=== PATIENT | female | born 1985 | race Caucasian/White ===

== ENCOUNTER 2018-12-20 18:09 | Emergency (ER) | payer MEDICAID ==
[~2018-12-20] VITALS: Ht 165.1 cm; Wt 134.7 kg
--- NOTE | 2018-12-20 18:19 | NUR ---
Patient to ER bed 05 to gown for evaluation. Side rails up.
[2018-12-20 18:20] VITALS: BP_SYST 143
--- NOTE | 2018-12-20 18:30 | NUR ---
Dianne Perkins at bedside examining patient.
--- NOTE | 2018-12-20 18:31 | NUR ---
Pt ambulated with non slip socks and steady gait to bathroom to provide urine sample
--- NOTE | 2018-12-20 18:35 | NUR ---
report given, patient AOx4 arriving via bls from [facility]. patient stated I swallowed a AAA battery on monday and they took me to [facility]. patient was medically cleared monday after swallowing the battery. patient states "I've done this a lot." patient stated she was trying to kill herself because she was angery at her [facility]. patient denies pain/n/v/d or any complaint outside of being angery with her [facility]. no other complaint or injury at this time.
--- NOTE | 2018-12-20 18:45 | NUR ---
cancelled all labs and orders.
--- NOTE | 2018-12-20 18:45 | NUR ---
Rita with posion control stated: Batteries will pass within 5-7 days but it varies depending on the bowl pattern of the person. Sometimes you can add miralax to help the process along. if the patient develops symptoms of obstruction, aloc, sever abd pain, fever. patient should be seen by medical staff. no other recommendation at this time.
--- NOTE | 2018-12-20 18:50 | NUR ---
requested straight cath for test.
[2018-12-20] MEDS ORDERED: POLYETHYLENE GLYCOL 3350, 17 GM/ POWD.PACK PO ONE (19:00)
--- NOTE | 2018-12-20 19:11 | NUR ---
patient is to be transfered back to [facility].
--- NOTE | 2018-12-20 19:18 | NUR ---
Patient to be transferred to [place]. Is being transferred due to higher level of care. Receiving facility has accepting physician and available space. ER physician has signed transfer form. Patient or responsible constitution party has agreed to transfer and signed form. Patient belongings inventoried and will be sent with patient. Copy of nursing notes, lab reports, EKG, Physicians Orders and X-rays to be sent with patient. Report called to Khai Coto at receiving facility. Receiving physician is following patient at this time. patient was transfered to [facility] from [facility]. [facility] ambulance service has been called for transfer. ETA is 1930.
--- NOTE | 2018-12-20 19:23 | NUR ---
Patient transported to radiology, accompanied by rad staff.
--- NOTE | 2018-12-20 19:30 | NUR ---
Pt returned from radiology in stable condition
--- NOTE | 2018-12-20 19:35 | NUR ---
[facility] arrived for patient transportation.
--- NOTE | 2018-12-20 19:40 | NUR ---
Patient given written and verbal discharge instructions and verbalizes understanding. ER MD discussed with patient the results and treatment provided. Patient in stable condition. ID arm band removed. Rx of Miralax given. Patient educated on pain management and to follow up with PMD. Pain Scale 0/10. Opportunity for questions provided and answered. Medication side effect fact sheet provided.
[2018-12-20 19:46] VITALS: BP_SYST 133
== END 2018-12-20 19:40 | disposition home or self-care (01) ==
LOC: SED 18:09
DX: T18.8XXA Foreign body in other parts of alimentary tract, initial encounter (principal); K59.00 Constipation, unspecified; E78.00 Pure hypercholesterolemia, unspecified; F31.9 Bipolar disorder, unspecified; F20.9 Schizophrenia, unspecified; I10 Essential (primary) hypertension; Z88.0 Allergy status to penicillin; Z88.1 Allergy status to other antibiotic agents; Z88.2 Allergy status to sulfonamides; X58.XXXA Exposure to other specified factors, initial encounter; Y93.89 Activity, other specified; Y92.89 Other specified places as the place of occurrence of the external cause; Y99.8 Other external cause status
CPT/HCPCS: 71045; 74018; 99283

== ENCOUNTER 2021-03-25 20:19 | Emergency (ER) | payer MEDICAID ==
[~2021-03-25] VITALS: Ht 170.2 cm; Wt 149.7 kg
[2021-03-25 20:19] VITALS: BP_SYST 132
[2021-03-25 21:07] LABS: BASOPHILS # (AUTO) 0.1 K/uL (0.0-0.2); BASOPHILS % (AUTO) 0.9 % (0.0-2.0); EOSINOPHILS # (AUTO) 0.1 K/uL (0.0-0.4); HEMATOCRIT 39.3 % (36-48); HEMOGLOBIN 13.2 g/dL (12.0-16.0); LYMPHOCYTES # (AUTO) 2.4 K/uL (1.0-5.5); MEAN CORPUSCULAR HEMOGLOBIN 30 pg (27-31); MEAN CORPUSCULAR HGB CONC 34 % (32-36); MEAN CORPUSCULAR VOLUME 90 fL (79.0-98.0); MONOCYTES # (AUTO) 0.6 K/uL (0.0-1.0); MONOCYTES % (AUTO) 7.5 % (1.7-9.3); NEUTROPHILS # (AUTO) 4.3 K/uL (1.8-7.7); NEUTROPHILS % (AUTO) 57.6 % (40.0-70.0); PLATELET COUNT (AUTO) 262 K/uL (130-430); RED BLOOD CELL COUNT(AUTO) 4.35 MIL/uL (4.2-6.2); RED CELL DISTRIBUTION WIDTH 13.8 % (9.0-15.0); WHITE BLOOD COUNT (AUTO) 7.4 K/uL (4.8-10.8)
[2021-03-25 21:17] LABS: BILIRUBIN,URINE NEGATIVE (NEGATIVE); BLOOD, URINE NEGATIVE (NEGATIVE); CLARITY/URINE OTHER (CLEAR); COLOR,URINE YELLOW (YELLOW); GLUCOSE,URINE NEGATIVE (NEGATIVE); KETONES,URINE NEGATIVE (NEGATIVE); LEUKOCYTE ESTERASE ,URINE 1+ (NEGATIVE); NITRITE, URINE NEGATIVE (NEGATIVE); PH,URINE 7.5 (5.0-8.0); PROTEIN URINE NEGATIVE (NEGATIVE); UROBILINOGEN,URINE 0.2 (0.2-1.0)
[2021-03-25 21:31] LABS: ANION GAP 6 (5-15); CALCIUM 8.6 mg/dL (8.4-11.0); CHLORIDE 105 mmol/L (98-107); CREATININE 0.55 mg/dL (0.55-1.30); GLUCOSE 101 mg/dL (70-99); POTASSIUM 3.7 mmol/L (3.5-5.1); SODIUM SERUM 140 mmol/L (136-145); UREA NITROGEN, BLOOD 11 mg/dL (8-21)
[2021-03-25 21:32] LABS: GFR AFRICAN AMERICAN 161 mL/min (>90)
[2021-03-25 21:36] LABS: ALANINE AMINOTRANSFERASE 23 U/L (12-78); ALBUMIN 3.1 g/dL (3.4-4.8); ASPARTATE AMINOTRANSFERASE 11 U/L (10-37); TOTAL BILIRUBIN 0.3 mg/dL (0.0-1.0)
[2021-03-25 21:37] LABS: BARBITURATE, URINE NEGATIVE (NEG <=200); BENZODIAZEPINE, URINE POSITIVE (NEG <=150); CANNABINOID, URINE NEGATIVE (NEG <=50); COCAINE, URINE NEGATIVE (NEG <=150); METHAMPHETAMINES SCREEN,URINE NEGATIVE (NEG <=500); OPIATE, URINE NEGATIVE (NEG <=100); PHENCYCLIDINE SCREEN,URINE NEGATIVE (NEG <=25); UR TRICYCLIC ANTIDEPRESSANTS NEGATIVE (NEG <=300); URINE AMPHETAMINE NEGATIVE (NEG <=500); URINE METHADONE NEGATIVE (NEG <=200); URINE OXYCODONE SCREEN NEGATIVE (NEG <=100); URINE PROPOXYPHENE SCREEN NEGATIVE (NEG <=300)
[2021-03-25 21:40] LABS: ACETAMINOPHEN < 1 ug/mL (1-30); ALCOHOL, BLOOD < 3 mg/dL (<10)
[2021-03-25 21:41] LABS: CHOLESTEROL 185 mg/dL (<200); HDL CHOLESTEROL 43 mg/dL (>55); TRIGLYCERIDES 203 mg/dL (30-150)
[2021-03-25 21:42] LABS: LDL CHOLESTEROL 121 mg/dL (<100)
[2021-03-25 21:44] LABS: BACTERIA,URINE None Seen /HPF (None Seen); RBC,URINE NONE SEEN /HPF (0-3)
[2021-03-25 21:45] LABS: TRICHOMONAS,URINE None Seen /HPF (None Seen); YEAST,URINE None Seen /HPF (None Seen)
[2021-03-25] MEDS ORDERED: PROCHLORPERAZINE EDISYLATE 10 MG/2 ML VIAL IVP ONE (23:00)
[2021-03-26 08:37] VITALS: BP_SYST 126
[2021-03-27] MEDS ORDERED: maalox PO (21:28)
[2021-03-27] MEDS ORDERED: ACET-2634 PO (21:28)
[2021-03-27] MEDS ORDERED: MV-M1TAB2 PO (21:28)
[2021-03-27] MEDS ORDERED: MOM PO (21:28)
[2021-03-27] MEDS ORDERED: IBUP-1968 PO (21:28)
[2021-03-27] MEDS ORDERED: LORA-258 PO (21:28)
[2021-03-27] MEDS ORDERED: ZOLP5TAB2 PO (21:28)
== END 2021-03-26 09:49 ==
LOC: SED 20:19
DX: F29 Unspecified psychosis not due to a substance or known physiological condition (principal); F43.20 Adjustment disorder, unspecified; I10 Essential (primary) hypertension; F20.9 Schizophrenia, unspecified; E78.00 Pure hypercholesterolemia, unspecified; Z88.0 Allergy status to penicillin; Z88.1 Allergy status to other antibiotic agents; Z88.2 Allergy status to sulfonamides; Z20.822 Contact with and (suspected) exposure to COVID-19
CPT/HCPCS: 36415; 74018; 80053; 80061; 80307; 81000; 83036; 85025; 87081; 87426; 96374; 99285; G0480; G0481; G0482; J0780

== ENCOUNTER 2021-03-27 20:37 | Inpatient (IN) | payer MEDICAID, SELFPAY ==
[~2021-03-27] VITALS: Ht 170.2 cm; Wt 133.4 kg
[~2021-03-27 20:37] MED LIST: LR 1,000 ML IV.SOLN IV ONE; MIDAZOLAM HCL 5 MG/5 ML VIAL IVP ONE; NS 1000 ML IV.SOLN IV ONE; PROPOFOL 200MG/ 20ML VIAL (DIPRIVAN) IV ONE
--- NOTE | 2021-03-27 20:37 | NUR ---
Patient to ER bed 4 to gown for evaluation. Side rails up. Report given to self.
[2021-03-27 20:45] VITALS: BP_SYST 140
--- NOTE | 2021-03-27 21:00 | NUR ---
ER at bedside examining patient. Patient stated that she heard voices telling her to break her glasses and eat the pieces of glass. No active bleeding from oral area noted. Introduced self to patient, positioned for comfort, continue to monitor.
[2021-03-27] MEDS ORDERED: ACET-2634 PO (21:28)
[2021-03-27] MEDS ORDERED: MOM PO (21:28)
[2021-03-27] MEDS ORDERED: ZOLP5TAB2 PO (21:28)
[2021-03-27] MEDS ORDERED: IBUP-1968 PO (21:28)
[2021-03-27] MEDS ORDERED: LORA-258 PO (21:28)
[2021-03-27] MEDS ORDERED: MV-M1TAB2 PO (21:28)
[2021-03-27] MEDS ORDERED: maalox PO (21:28)
[2021-03-27 21:42] LABS: BASOPHILS # (AUTO) 0.3 K/uL (0.0-0.2); BASOPHILS % (AUTO) 4.2 % (0.0-2.0); EOSINOPHILS # (AUTO) 0.1 K/uL (0.0-0.4); EOSINOPHILS % (AUTO) 1.3 % (0.0-4.0); HEMATOCRIT 41.7 % (36-48); HEMOGLOBIN 14.2 g/dL (12.0-16.0); LYMPHOCYTES # (AUTO) 1.6 K/uL (1.0-5.5); LYMPHOCYTES % (AUTO) 22.9 % (20.5-51.5); MEAN CORPUSCULAR HEMOGLOBIN 31 pg (27-31); MEAN CORPUSCULAR HGB CONC 34 % (32-36); MEAN CORPUSCULAR VOLUME 90 fL (79.0-98.0); MONOCYTES # (AUTO) 0.5 K/uL (0.0-1.0); MONOCYTES % (AUTO) 6.7 % (1.7-9.3); NEUTROPHILS # (AUTO) 4.6 K/uL (1.8-7.7); NEUTROPHILS % (AUTO) 64.9 % (40.0-70.0); PLATELET COUNT (AUTO) 278 K/uL (130-430); RED BLOOD CELL COUNT(AUTO) 4.61 MIL/uL (4.2-6.2); RED CELL DISTRIBUTION WIDTH 13.8 % (9.0-15.0)
[2021-03-27 21:48] LABS: ANION GAP 7 (5-15); CALCIUM 8.7 mg/dL (8.4-11.0); CHLORIDE 104 mmol/L (98-107); GFR AFRICAN AMERICAN 145 mL/min (>90); GLUCOSE 88 mg/dL (70-99); POTASSIUM 3.9 mmol/L (3.5-5.1); SODIUM SERUM 139 mmol/L (136-145); UREA NITROGEN, BLOOD 15 mg/dL (8-21)
[2021-03-27 21:48] LABS: BILIRUBIN,URINE NEGATIVE (NEGATIVE); BLOOD, URINE NEGATIVE (NEGATIVE); COLOR,URINE YELLOW (YELLOW); GLUCOSE,URINE NEGATIVE (NEGATIVE); KETONES,URINE NEGATIVE (NEGATIVE); LEUKOCYTE ESTERASE ,URINE 1+ (NEGATIVE); NITRITE, URINE NEGATIVE (NEGATIVE); PH,URINE 7.5 (5.0-8.0); PROTEIN URINE NEGATIVE (NEGATIVE); UROBILINOGEN,URINE 0.2 (0.2-1.0)
[2021-03-27 21:49] LABS: INR 1.1 (0.8-1.2); PROTHROMBIN TIME 11.2 SECS (9.5-12.5)
[2021-03-27 21:53] LABS: CLARITY/URINE HAZY (CLEAR)
[2021-03-27 21:54] LABS: ALANINE AMINOTRANSFERASE 27 U/L (12-78); ALBUMIN 3.1 g/dL (3.4-4.8); ALCOHOL, BLOOD 3 mg/dL (<10); ASPARTATE AMINOTRANSFERASE 8 U/L (10-37); TOTAL BILIRUBIN 0.3 mg/dL (0.0-1.0)
[2021-03-27 21:55] LABS: ACETAMINOPHEN < 1 ug/mL (1-30)
[2021-03-27 22:02] LABS: BACTERIA,URINE MANY /HPF (None Seen); RBC,URINE 0-3 /HPF (0-3)
[2021-03-27 22:03] LABS: URINE AMORPHOUS PHOSPHATES 2+ /HPF (None Seen)
[2021-03-27 22:04] LABS: MUCUS,URINE None Seen /LPF (None Seen)
[2021-03-27 22:08] LABS: BARBITURATE, URINE NEGATIVE (NEG <=200); BENZODIAZEPINE, URINE NEGATIVE (NEG <=150); CANNABINOID, URINE NEGATIVE (NEG <=50); COCAINE, URINE NEGATIVE (NEG <=150); METHAMPHETAMINES SCREEN,URINE NEGATIVE (NEG <=500); PHENCYCLIDINE SCREEN,URINE NEGATIVE (NEG <=25); URINE AMPHETAMINE NEGATIVE (NEG <=500); URINE METHADONE NEGATIVE (NEG <=200)
[2021-03-27 22:09] LABS: OPIATE, URINE NEGATIVE (NEG <=100); UR TRICYCLIC ANTIDEPRESSANTS NEGATIVE (NEG <=300); URINE OXYCODONE SCREEN NEGATIVE (NEG <=100); URINE PROPOXYPHENE SCREEN NEGATIVE (NEG <=300)
--- NOTE | 2021-03-27 22:38 | NUR ---
Patient resting quietly. No acute distress noted. Vital signs within normal range. Positioned for comfort, bed to low position, sr up. No bizarre or unusual behavior noted.
[2021-03-27] MEDS ORDERED: ALBUTEROL SULFATE 0.083% 2.5 MG/3 ML VIAL.NEB INH PRN (23:30)
[2021-03-27] MEDS ORDERED: ACETAMINOPHEN 325 MG TABLET PO PRN (23:30)
[2021-03-27] MEDS ORDERED: NALOXONE HCL 0.4 MG/ML AMP (NARCAN) IVP PRN (23:30)
--- NOTE | 2021-03-27 23:39 | NUR ---
# 22 gauge angiocath placed to left hand. Use of asceptic technique. Opsite placed over site. Blood return noted Flushed with 10 cc of normal saline. No evidence of infiltration noted. Patient tolerated well. x3 attempts w/ success on final attempt. Patient resting quietly. No acute distress noted. Vital signs within normal range.
[2021-03-27] MEDS: NACL 0.9% 1,000 ML IV SCH (23:42)
[2021-03-27] MEDS: PANTOPRAZOLE SODIUM 40 MG/VIAL (PROTONIX) IVP SCH (23:43)
[2021-03-27] MEDS ORDERED: cefTRIAXone 1 GM IVPB PREMIX 50 ML IV SCH (23:45)
[2021-03-27] MEDS: MORPHINE 4 MG INJ. 4 MG/ML VIAL IVP PRN (23:50)
--- NOTE | 2021-03-27 23:50 | NUR ---
Medicated per MD orders. IVF infusing with no s/s of infiltration at this time. Will cont to monitor and will observe for any adverse reaction. bed to low position sr up.
[2021-03-27] MEDS: ONDANSETRON HCL 4 MG/2 ML VIAL IVP PRN (23:51)
[2021-03-28] VITALS (9 sets, daily range): BP systolic 99–136
--- NOTE | 2021-03-28 01:10 | NUR ---
Patient will be admitted to care of Dr. Smith. Admitted to Tele unit. Will go to room 131. Belongings list completed. Complete and up to date summary report printed. SBAR report to be given at bedside with opportunity for questions.
--- NOTE | 2021-03-28 01:30 | NUR ---
Patient resting quietly. No acute distress noted. Vital signs within normal range.
--- NOTE | 2021-03-28 01:58 | NUR ---
Admission Note Received patient from ER with diagnosis of FOREIGN BODY INGESTION. Initial Plan of Care discussed-patient verbalized understanding. SITTER at bedside. Oriented to room, pain management, and safety.
[2021-03-28] MEDS: LORazepam 2 MG/ML VIAL IVP PRN ×2 (02:33→22:44)
--- NOTE | 2021-03-28 02:33 | NUR ---
MEDICATIONS/ROUNDS Patient resting in bed, AAOx4, breathing evenly and nonlabored on room air. Patient has an IV on the left hand 22g, IVF running, patent and benign, no s/s of infiltration or infection noted at this time, patient is tolerating the IVF well. Patient complained of feeling anxious and difficulty sleeping. Educated patient on PRN medication for anxiety/agitation, patient stated understanding. Administered PRN medication, patient tolerated it well. No other needs at this time, sitter at this bedside. Fall/safety precautions, will continue to monitor.
--- NOTE | 2021-03-28 03:53 | NUR ---
CONSULTATION PAGED/CALLED Reason for Consultation: FORIEGN BODY INJECTED Person Who was Notified: ER DOCTOR SPOKE WITH DOCTOR Consulting Physician: DR. DORMAN Hand Mold Maker Specialty: Ordering Physician: SRINIVAS Addendum: 03/28/21 at 0353 by Trinity Mccallum CNA JORGE L DORMAN
--- NOTE | 2021-03-28 03:54 | NUR ---
CONSULTATION PAGED/CALLED Reason for Consultation: FORIEGN BODY INJECTED Person Who was Notified: KARUNA Consulting Physician: DOCTOR GERALD CROCKER IS GRAVITY PROSPECTING OPERATOR Developing Machine Operator Specialty: Ordering Physician: SRINIVAS
--- NOTE | 2021-03-28 04:20 | NUR ---
ROUNDS Patient resting in bed, eyes closed, breathing evenly and nonlabored on room air. IVF running, patient is tolerating it well. No s/s of distress at this time, no other needs at this time. Sitter at the bedside. Fall/safety precautions, will continue to monitor.
[2021-03-28 06:16] LABS: BASOPHILS % (AUTO) 0.6 % (0.0-2.0); EOSINOPHILS # (AUTO) 0.2 K/uL (0.0-0.4); EOSINOPHILS % (AUTO) 2.2 % (0.0-4.0); HEMATOCRIT 40.6 % (36-48); HEMOGLOBIN 13.5 g/dL (12.0-16.0); LYMPHOCYTES # (AUTO) 1.9 K/uL (1.0-5.5); LYMPHOCYTES % (AUTO) 26.7 % (20.5-51.5); MEAN CORPUSCULAR HEMOGLOBIN 30 pg (27-31); MEAN CORPUSCULAR HGB CONC 33 % (32-36); MEAN CORPUSCULAR VOLUME 91 fL (79.0-98.0); MONOCYTES # (AUTO) 0.6 K/uL (0.0-1.0); MONOCYTES % (AUTO) 8.4 % (1.7-9.3); NEUTROPHILS # (AUTO) 4.5 K/uL (1.8-7.7); NEUTROPHILS % (AUTO) 62.1 % (40.0-70.0); PLATELET COUNT (AUTO) 259 K/uL (130-430); RED BLOOD CELL COUNT(AUTO) 4.45 MIL/uL (4.2-6.2); RED CELL DISTRIBUTION WIDTH 13.9 % (9.0-15.0); WHITE BLOOD COUNT (AUTO) 7.2 K/uL (4.8-10.8)
[2021-03-28] MEDS: ONDANSETRON HCL 4 MG/2 ML VIAL IVP PRN ×3 (06:36→19:19)
[2021-03-28] MEDS: MORPHINE 4 MG INJ. 4 MG/ML VIAL IVP PRN ×3 (06:37→19:18)
[2021-03-28] MEDS: NACL 0.9% 1,000 ML IV SCH ×3 (06:44→23:23)
--- NOTE | 2021-03-28 08:00 | NUR ---
A/OX4. NO DISTRESS NOTED. SITTER AT BEDSIDE. IV RESTARTED ON RIGHT FA, #22, SITE INTACT AND PATENT. CALL LIGHT IN PLACE, BED LOCKED AT THE LOWEST POSITION, WILL CONTINUE TO MONITOR.
[2021-03-28] MEDS: PANTOPRAZOLE SODIUM 40 MG/VIAL (PROTONIX) IVP SCH ×2 (08:26→22:20)
[2021-03-28 08:38] LABS: CALCIUM 8.2 mg/dL (8.4-11.0); CREATININE 0.52 mg/dL (0.55-1.30); POTASSIUM 3.7 mmol/L (3.5-5.1); TOTAL BILIRUBIN 0.3 mg/dL (0.0-1.0)
--- NOTE | 2021-03-28 09:53 | NUR ---
LEFT A MESSAGE WITH [facility] FOR THE CONSERVATOR RE: CONSENT FOR EGD UNDER ANAESTHESIA. ([phone])
--- NOTE | 2021-03-28 10:10 | NUR ---
ATTENDING MD DR CHAIREZ WAS CALLED, RE: SIGNATURE OF THE CONSENT FOR EGD UNDER ANAESTHESIA (MEDICAL NECESSITY). SPOKE TO SHAKA.
--- NOTE | 2021-03-28 10:20 | NUR ---
DR. CHAIREZ CALLS BACK. HE STATES HE WILL COME IN TO SIGN THE CONSENT FORM.
--- NOTE | 2021-03-28 11:00 | NUR ---
DR. CHAIREZ AT NURSING STATION. HE SIGNED THE PROCEDURE CONSENT, WHICH WOULD REQUIRE TWO DOCTORS' SIGNATURE, FOR THE PATIENT.
[2021-03-28] MEDS ORDERED: fentaNYL CITRATE/PF 100 MCG/2 ML AMP IVP PRN ×2 (13:15)
[2021-03-28] MEDS ORDERED: ONDANSETRON HCL 4 MG/2 ML VIAL IVP PRN (13:15)
--- NOTE | 2021-03-28 13:15 | NUR ---
PATIENT TO OR. TRANSPORT WAS TOLERATED WITHOUT DISTRESS.
--- NOTE | 2021-03-28 14:08 | NUR ---
VTP notes: HOSE MAKER asked Rn. Francis if a psyc consult was ordred to which he replied indeed one was pending. HOSE MAKER introduced self to patient who was lying down quietly resting. Patient was pleasant, spoke clearly, was a good historian and agreed to participate in this interview. HOSE MAKER asked patient to confirm demographic info. Patient stated Margarita Ross listed as a contact is her Conservator with the [facility]. Patient confirmed he address and stated it is a board and care and the Admin. is Puja who can also be contacted at [phone]. Patient stated she was upset and did not want to be at [facility]. Patient said she heard voices telling her to break her glasses and swallow a piece which she did. This took place while at [facility]. Pt. stated she has a diagnosis of Bipolar and Schizoaffective and was Dx. when she was about [age]. Please read HOSE MAKER notes. When HOSE MAKER inquired about her medicine regime, patient stated she is good about getting her blood sugar levels taken as well as taking all her medications, over 10 pills throughout the day, 8am, 2pm and 8pm. When HOSE MAKER asked patient about her support system, patient replied at her [employer] she has two staff to herself at all times. She also has her mom who was able to briefly visit her earlier today. She also has a sister, grandmother and aunt that are apart of her support system. HOSE MAKER asked patient to agree to come up with a plan if she hears voices again. HOSE MAKER asked patient to share what the voices are telling her with someone. Patient agreed to do so and expressed how uncomfortable she was. Patient stated looking back she wishes she did not resort to eating part of her glasses. Patient stated she has a Pscychiatrist and a Therapist and sees both on a regular basis, 1x per month via Zoom ( Due to Covid). Patient agreed to continue seeing these professionals. HOSE MAKER will remain available as needed.
--- NOTE | 2021-03-28 15:11 | NUR ---
CONSULTATION PAGED/CALLED Reason for Consultation: [] PSYCHIATRIC CONDITION Person Who was Notified: [] DR HOWARD Consulting Physician: [] DR HOWARD, HIGH SCHOOL COMBINATION TEACHER FOR DR RODGERS Expert Witness Specialty: [] PSYCH Ordering Physician: [] DR CHAIREZ
--- NOTE | 2021-03-28 15:15 | NUR ---
PATIENT HAS BEEN RETURNED FROM OR. NO SIGNS OF DISTRESS NOTED.
--- NOTE | 2021-03-28 17:05 | NUR ---
PATIENT IS OFFERED WITH JUICE. WILL REASSESS FOR DISCOMFORT.
--- NOTE | 2021-03-28 17:30 | NUR ---
DR. DORMAN IS AT BEDSIDE, AND PATIENT'S CONDITION IS UPDATED. ALSO INFORMED THAT PATIENT IS HAVING ABDOMINAL DISCOMFORT, 06/29. NO NEW ORDERS FROM DR. DORMAN AT THIS TIME.
[2021-03-28] MEDS: cefTRIAXone 1 GM IVPB PREMIX 50 ML IV SCH (22:20)
[2021-03-29 01:07] VITALS: BP_SYST 124
[2021-03-29] MEDS: MORPHINE 4 MG INJ. 4 MG/ML VIAL IVP PRN ×2 (01:44→09:02)
[2021-03-29] MEDS: LORazepam 2 MG/ML VIAL IVP PRN ×2 (03:33→18:13)
[2021-03-29] MEDS: ONDANSETRON HCL 4 MG/2 ML VIAL IVP PRN ×4 (04:51→21:23)
[2021-03-29 08:00] VITALS: BP_SYST 116
--- NOTE | 2021-03-29 08:00 | NUR ---
OPENING NOTES: PATIENT RESTING IN BED. NO SIGNS OF ACUTE DISTRESS NOTED. IVF PATENT AND INFUSING WELL. SAFETY AND FALL PRECAUTIONS REINFORCED. BED LOCKED, IN LOWEST POSITION AND ALARM ON. CALL LIGHT WITHIN REACH.
[2021-03-29] MEDS: PANTOPRAZOLE SODIUM 40 MG/VIAL (PROTONIX) IVP SCH ×2 (08:58→21:23)
[2021-03-29] MEDS: NACL 0.9% 1,000 ML IV SCH ×3 (08:59→23:30)
--- NOTE | 2021-03-29 10:42 | NUR ---
DC TELEMETRY: DOWNGRADED PATIENT TO MEDICAL SURGICAL ORDERED.
[2021-03-29 12:00] VITALS: BP_SYST 111
[2021-03-29 16:41] VITALS: BP_SYST 115
--- NOTE | 2021-03-29 19:11 | NUR ---
CLOSING NOTES: PATIENT EATING DINNER. NO SIGNS OF ACUTE DISTRESS NOTED. IVF PATENT WITH NO SIGNS OF INFILTRATION AND INFUSING WELL. FALL AND SAFETY PRECAUTION REINFORCED. BED LOCKED AND IN LOWEST POSITION. CALL LIGHT WITHIN REACH.
--- NOTE | 2021-03-29 19:20 | NUR ---
OPENING NOTES PATIENT RESTING, NO SIGNS OF DISTRESS NOTED. SAFETY, ASPIRATION, RESPIRATORY, AND FALL PRECAUTIONS IN PLACE. DISCUSSED PLAN OF CARE WITH PATIENT. CALL LIGHT WITHIN REACH, PATIENT DEMONSTRATES PROPER USAGE OF CALL LIGHT, BED ALARM OFF PER PATIENT REQUEST, BED AT LOWEST POSITION, BED LOCKED. SITTER AT BEDSIDE. WILL CONTINUE TO MONITOR.
[2021-03-29 20:00] VITALS: BP_SYST 114
[2021-03-29] MEDS: cefTRIAXone 1 GM IVPB PREMIX 50 ML IV SCH (21:23)
[2021-03-30] VITALS (7 sets, daily range): BP systolic 93–121
--- NOTE | 2021-03-30 01:20 | NUR ---
IV RE-INSERTION: Complaining of pain to IV site. Restarted on RIGHT FOREARM 22G. Will observe for any signs of infiltration.
--- NOTE | 2021-03-30 06:39 | NUR ---
CLOSING NOTES PATIENT RESTING, NO SIGNS OF DISTRESS NOTED, SLEEPING ON THE SIDE. SAFETY, ASPIRATION, RESPIRATORY, AND FALL PRECAUTIONS IN PLACE. SITTER AT BEDSIDE. CALL LIGHT WITHIN REACH, PATIENT DEMONSTRATED PROPER USAGE OF CALL LIGHT THROUGHOUT SHIFT, BED ALARM OFF PER PATIENT REQUEST, BED AT LOWEST POSITION, BED LOCKED. ALL NEEDS MET THROUGHOUT SHIFT. WILL ENDORSE CARE TO ONCOMING SHIFT.
--- NOTE | 2021-03-30 07:14 | NUR ---
Nutrition Update Yury Scale 18 noted. Pt admitted for Swallowed foreign body ingestion Diet: full liquid BMI: 46.1 kg/m2 RD to follow per nutrition care standards.
[2021-03-30] MEDS: NACL 0.9% 1,000 ML IV SCH ×2 (07:30→13:10)
[2021-03-30] MEDS: MORPHINE 4 MG INJ. 4 MG/ML VIAL IVP PRN (08:00)
[2021-03-30] MEDS: PANTOPRAZOLE SODIUM 40 MG/VIAL (PROTONIX) IVP SCH ×2 (08:00→20:27)
--- NOTE | 2021-03-30 08:00 | NUR ---
Complaining of lower back pain with menstrual period , cooperative answers question , denies any suicidal thoughts , with sitter at the bedside, ambulates with steady gait , due pain medication given , will monitor.
[2021-03-30] MEDS: MORPHINE 2 MG/ML INJ. SYRINGE IVP PRN ×2 (12:11→20:30)
--- NOTE | 2021-03-30 12:30 | NUR ---
KIRAN notes: COTTON BREEDER received an order to discharge patient back to [facility]. COTTON BREEDER spoke to Dr. Reddy who will come by today to assess patient. COTTON BREEDER phoned [facility] (p:[phone]) and spoke with Suzie Lozada; clinicals faxed for review, pending [facility] hold. SS will follow up. Addendum: 03/30/21 at 1407 by Ramonita ARCHIBALD Pt is currently on 5150 hold for GTS/GD; faxed to [facility]. COTTON BREEDER phoned Margarita PARTIDA and left a message for a call back to update on d/c. Addendum: 03/30/21 at 1512 by Ramonita ARCHIBALD SS received a call back from [facility] center conservatorMargarita; informed of pending transfer to psych inpt. Margarita has requested for her to be updated on pt's discharge and in her absence to contact Elizabet Cabrera @ [phone].
--- NOTE | 2021-03-30 12:41 | NUR ---
Dietitian Recommendations * Recommend: continue full liquid diet * Recommend: advance diet when medically appropriate. (regular diet) Please see Nutritional Assessment for details. VALENTIN MAHER
--- NOTE | 2021-03-30 13:24 | NUR ---
Seen and examined by Dr. Reddy , said he will discuss with admitting doctor the plan of care, still with sitter
--- NOTE | 2021-03-30 14:00 | NUR ---
Patient is having anxiety after she learned that she will be transfer to psyche facility , Ativan 1 mg IV push slowly given , safety/fall precaution initiated sitter at the bedside.
[2021-03-30] MEDS: LORazepam 2 MG/ML VIAL IVP PRN (14:09)
--- NOTE | 2021-03-30 17:58 | NUR ---
Tolerating regular diet no abdominal pain, calm and cooperative.
--- NOTE | 2021-03-30 19:01 | NUR ---
[facility] CALLED TO FOLLOW UP AND SPOKE WITH ARTUR SHE SAID FOR ME TO FOLLOW UP AT [phone] THAT THEY WILL MOST LIKELY ACCEPT THE PT AND WILL HAVE A BED AVAILABLE. NOTIFIED RN
--- NOTE | 2021-03-30 20:23 | NUR ---
fely oliva spoke with jose and she gave me room 114a for report to call [phone]
[2021-03-30] MEDS: ONDANSETRON HCL 4 MG/2 ML VIAL IVP PRN (20:28)
[2021-03-30] MEDS: cefTRIAXone 1 GM IVPB PREMIX 50 ML IV SCH (20:28)
--- NOTE | 2021-03-30 20:28 | NUR ---
medic 1 spoke with janna pick and shovel worker is 2300 going to [facility] room 114a
--- NOTE | 2021-03-30 22:15 | NUR ---
Report Report given to Sarah Beth at [facility] pt to go to RM [address] accepting MD Dr. Hudson.
--- NOTE | 2021-03-30 23:15 | NUR ---
D/C Patient Medic 1 ambulance in station. Patient in stable condition, ID band removed. IV catheter removed, intact and dressing applied, no active bleeding. Ambulated to the bathroom and voided, steady gait. Paperwork given to ambulance tech. All belongings sent with patient.
== END 2021-03-30 22:15 | DRG 254 ==
LOC: SED 20:37 → STU 22:50 → SMU 03-29 19:20
PROVIDERS: ADMIT Internal Medicine; ATTEND Internal Medicine
PROC: 0DJ08ZZ Inspection of Upper Intestinal Tract, Via Natural or Artificial Opening Endoscopic (ICD-10-PCS; principal; 2021-03-28 13:30)
DX: T18.3XXA Foreign body in small intestine, initial encounter (principal); E66.01 Morbid (severe) obesity due to excess calories; F20.9 Schizophrenia, unspecified; Z68.42 Body mass index [BMI] 45.0-49.9, adult; E11.9 Type 2 diabetes mellitus without complications; E78.5 Hyperlipidemia, unspecified; I10 Essential (primary) hypertension; F31.9 Bipolar disorder, unspecified; Z20.822 Contact with and (suspected) exposure to COVID-19; X58.XXXA Exposure to other specified factors, initial encounter; Z88.0 Allergy status to penicillin; Z88.2 Allergy status to sulfonamides; Z88.1 Allergy status to other antibiotic agents; Y93.89 Activity, other specified; Y92.89 Other specified places as the place of occurrence of the external cause; Y99.8 Other external cause status
CPT/HCPCS: 36415; 71045; 71250-TC; 74018; 76376; 80053; 80307; 81000; 82550; 82962; 84484; 85025; 85610-TC; 87081; 87086; 93005; 96365; 99285; C9113; G0378; G0480; G0481; G0482; J0696; J2060; J2250; J2270; J2405; J2704; J7030; J7120

== ENCOUNTER 2021-03-31 19:39 | Emergency (ER) | payer MEDICAID, SELFPAY ==
[~2021-03-31] VITALS: Ht 170.2 cm; Wt 133.8 kg
[~2021-03-31 19:39] MED LIST changes: +ACET-2634 PO; +LORA-258 PO; -LR 1,000 ML IV.SOLN IV ONE; -MIDAZOLAM HCL 5 MG/5 ML VIAL IVP ONE; +MOM PO; +MV-M1TAB2 PO; -NS 1000 ML IV.SOLN IV ONE; -PROPOFOL 200MG/ 20ML VIAL (DIPRIVAN) IV ONE; +ZOLP5TAB2 PO; +maalox PO
[2021-03-31 19:45] VITALS: BP_SYST 127
--- NOTE | 2021-03-31 19:50 | NUR ---
Patient to ER bed 5 to gown for evaluation. Side rails up.
--- NOTE | 2021-03-31 19:51 | NUR ---
Patient placed on suicide precautions. Patient placed in room within close proximity to nurses' station for closer observation and monitoring. All clothing removed, placed in hospital gown. Metal detector wand used to further screen patient of any potential hazardous belongings. All belongings inventoried, placed in bags and removed from room. Cabinets locked. BP and pulse oximeter cords, and school lunch monitor leads removed.
--- NOTE | 2021-03-31 20:02 | NUR ---
DR. SMITH AT BEDSIDE TO ASSESS.
--- NOTE | 2021-03-31 20:22 | NUR ---
Patient go to X-ray department with/escort by RT.
--- NOTE | 2021-03-31 20:28 | NUR ---
Patient came back from X-ray department.
--- NOTE | 2021-03-31 20:49 | NUR ---
Blood for labwork drawn from rent control office manager. Patient tolerated well.
[2021-03-31 21:04] LABS: MEAN CORPUSCULAR VOLUME 91 fL (79.0-98.0); WHITE BLOOD COUNT (AUTO) 7.3 K/uL (4.8-10.8)
[2021-03-31 21:22] LABS: BASOPHILS % (AUTO) 0.6 % (0.0-2.0); EOSINOPHILS # (AUTO) 0.2 K/uL (0.0-0.4); EOSINOPHILS % (AUTO) 2.5 % (0.0-4.0); HEMOGLOBIN 13.7 g/dL (12.0-16.0); LYMPHOCYTES # (AUTO) 2.2 K/uL (1.0-5.5); LYMPHOCYTES % (AUTO) 29.8 % (20.5-51.5); MEAN CORPUSCULAR HEMOGLOBIN 31 pg (27-31); MEAN CORPUSCULAR HGB CONC 34 % (32-36); MONOCYTES # (AUTO) 0.6 K/uL (0.0-1.0); MONOCYTES % (AUTO) 8.4 % (1.7-9.3); NEUTROPHILS # (AUTO) 4.3 K/uL (1.8-7.7); NEUTROPHILS % (AUTO) 58.7 % (40.0-70.0); PLATELET COUNT (AUTO) 289 K/uL (130-430); RED BLOOD CELL COUNT(AUTO) 4.51 MIL/uL (4.2-6.2); RED CELL DISTRIBUTION WIDTH 13.8 % (9.0-15.0)
[2021-03-31 21:28] LABS: CREATININE 0.6 mg/dL (0.55-1.30); POTASSIUM 3.9 mmol/L (3.5-5.1)
[2021-03-31 21:34] LABS: ALBUMIN 3.1 g/dL (3.4-4.8); TOTAL BILIRUBIN 0.2 mg/dL (0.0-1.0)
--- NOTE | 2021-03-31 23:14 | NUR ---
Patient to be transferred to [facility] room 114. Given report to AMGDALENA Polanco ([facility] staff). Patient will transfer back via BLS. ETA 30 minutes.
[2021-03-31 23:26] LABS: BILIRUBIN,URINE NEGATIVE (NEGATIVE); BLOOD, URINE NEGATIVE (NEGATIVE); CLARITY/URINE CLEAR (CLEAR); COLOR,URINE YELLOW (YELLOW); GLUCOSE,URINE 3+ (NEGATIVE); KETONES,URINE NEGATIVE (NEGATIVE); LEUKOCYTE ESTERASE ,URINE NEGATIVE (NEGATIVE); NITRITE, URINE NEGATIVE (NEGATIVE); PH,URINE 6.5 (5.0-8.0); PROTEIN URINE NEGATIVE (NEGATIVE); UROBILINOGEN,URINE 0.2 (0.2-1.0)
[2021-03-31 23:27] VITALS: BP_SYST 127
--- NOTE | 2021-03-31 23:27 | NUR ---
Patient will transfer back to [facility] via [facility] with EMT/BLS.
== END 2021-03-31 23:27 | disposition home or self-care (01) ==
LOC: SED 19:39
DX: T18.9XXA Foreign body of alimentary tract, part unspecified, initial encounter (principal); F29 Unspecified psychosis not due to a substance or known physiological condition; I10 Essential (primary) hypertension; E11.9 Type 2 diabetes mellitus without complications; Z88.0 Allergy status to penicillin; Z88.1 Allergy status to other antibiotic agents; Z88.2 Allergy status to sulfonamides; Z79.899 Other long term (current) drug therapy; X58.XXXA Exposure to other specified factors, initial encounter; Y93.89 Activity, other specified; Y92.89 Other specified places as the place of occurrence of the external cause; Y99.8 Other external cause status
CPT/HCPCS: 36415; 71045; 74018; 80053; 81003; 85025; 99284

== ENCOUNTER 2021-05-31 16:38 | Emergency (ER) | payer MEDICAID ==
[~2021-05-31] VITALS: Ht 170.2 cm; Wt 132.9 kg
== END 2021-05-31 17:00 | disposition left against medical advice (07) ==
LOC: SED 16:38
DX: Z02.89 Encounter for other administrative examinations (principal); Z53.21 Procedure and treatment not carried out due to patient leaving prior to being seen by health care provider

== ENCOUNTER 2021-10-18 18:03 | Emergency (ER) | payer MEDICAID, SELFPAY ==
[~2021-10-18] VITALS: Ht 170.2 cm; Wt 132.9 kg
--- NOTE | 2021-10-18 18:40 | NUR ---
Pt triaged and placed in hallway with EMS
[2021-10-18 18:53] VITALS: BP_SYST 110
[2021-10-18 19:23] LABS: BASOPHILS # (AUTO) 0.1 K/uL (0.0-0.2); BASOPHILS % (AUTO) 0.7 % (0.0-2.0); EOSINOPHILS # (AUTO) 0.1 K/uL (0.0-0.4); EOSINOPHILS % (AUTO) 1.2 % (0.0-4.0); HEMATOCRIT 38.9 % (36-48); HEMOGLOBIN 13.3 g/dL (12.0-16.0); LYMPHOCYTES # (AUTO) 2.3 K/uL (1.0-5.5); LYMPHOCYTES % (AUTO) 23.9 % (20.5-51.5); MEAN CORPUSCULAR HEMOGLOBIN 29 pg (27-31); MEAN CORPUSCULAR HGB CONC 34 % (32-36); MEAN CORPUSCULAR VOLUME 86 fL (79.0-98.0); MONOCYTES # (AUTO) 0.6 K/uL (0.0-1.0); MONOCYTES % (AUTO) 5.9 % (1.7-9.3); NEUTROPHILS # (AUTO) 6.5 K/uL (1.8-7.7); NEUTROPHILS % (AUTO) 68.3 % (40.0-70.0); PLATELET COUNT (AUTO) 268 K/uL (130-430); RED BLOOD CELL COUNT(AUTO) 4.54 MIL/uL (4.2-6.2); RED CELL DISTRIBUTION WIDTH 15.1 % (9.0-15.0); WHITE BLOOD COUNT (AUTO) 9.6 K/uL (4.8-10.8)
[2021-10-18 19:37] LABS: ANION GAP 8 (5-15); CALCIUM 9.2 mg/dL (8.4-11.0); CHLORIDE 103 mmol/L (98-107); CREATININE 0.53 mg/dL (0.55-1.30); GLUCOSE 119 mg/dL (70-99); POTASSIUM 3.9 mmol/L (3.5-5.1); SODIUM SERUM 138 mmol/L (136-145); UREA NITROGEN, BLOOD 15 mg/dL (8-21)
[2021-10-18 19:46] LABS: CHOLESTEROL 210 mg/dL (<200); HDL CHOLESTEROL 44 mg/dL (>55); LDL CHOLESTEROL 130 mg/dL (<100); TRIGLYCERIDES 241 mg/dL (30-150)
[2021-10-18 19:48] LABS: BILIRUBIN,URINE NEGATIVE (NEGATIVE); BLOOD, URINE NEGATIVE (NEGATIVE); COLOR,URINE YELLOW (YELLOW); GLUCOSE,URINE NEGATIVE (NEGATIVE); KETONES,URINE TRACE (NEGATIVE); LEUKOCYTE ESTERASE ,URINE TRACE (NEGATIVE); NITRITE, URINE NEGATIVE (NEGATIVE); PH,URINE 7.5 (5.0-8.0); PROTEIN URINE TRACE (NEGATIVE); UROBILINOGEN,URINE 0.2 (0.2-1.0)
[2021-10-18 19:50] LABS: ALANINE AMINOTRANSFERASE 23 U/L (12-78); ALBUMIN 3.1 g/dL (3.4-4.8); ASPARTATE AMINOTRANSFERASE 10 U/L (10-37); TOTAL BILIRUBIN 0.2 mg/dL (0.0-1.0)
[2021-10-18 19:53] LABS: GFR AFRICAN AMERICAN 168 mL/min (>90)
[2021-10-18 19:54] LABS: ACETAMINOPHEN < 1 ug/mL (1-30); ALCOHOL, BLOOD < 3 mg/dL (<10)
[2021-10-18 20:00] LABS: CLARITY/URINE HAZY (CLEAR)
[2021-10-18 20:07] LABS: BARBITURATE, URINE NEGATIVE (NEG <=200); BENZODIAZEPINE, URINE NEGATIVE (NEG <=150); CANNABINOID, URINE NEGATIVE (NEG <=50); COCAINE, URINE NEGATIVE (NEG <=150); METHAMPHETAMINES SCREEN,URINE NEGATIVE (NEG <=500); OPIATE, URINE NEGATIVE (NEG <=100); PHENCYCLIDINE SCREEN,URINE NEGATIVE (NEG <=25); UR TRICYCLIC ANTIDEPRESSANTS NEGATIVE (NEG <=300); URINE AMPHETAMINE NEGATIVE (NEG <=500); URINE METHADONE NEGATIVE (NEG <=200); URINE OXYCODONE SCREEN NEGATIVE (NEG <=100); URINE PROPOXYPHENE SCREEN NEGATIVE (NEG <=300)
--- NOTE | 2021-10-18 20:21 | NUR ---
Patient placed on suicide precautions. Patient placed in room within close proximity to nurses' station for closer observation and monitoring. All clothing removed, placed in hospital gown. Metal detector wand used to further screen patient of any potential hazardous belongings. All belongings inventoried, placed in bags and removed from room. Cabinets locked. BP and pulse oximeter cords, and school bus monitor leads removed.
--- NOTE | 2021-10-18 20:21 | NUR ---
Patient to ER bed 5 to gown for evaluation. Side rails up.
--- NOTE | 2021-10-18 20:25 | NUR ---
Patient BIB by BLS/EMS. C/O suicidal x today. Per reported, patient had been discharged from [facility] today ~ 15.40 PM and walked to PD station and informed about suicidal ideation. Patient reported, patient lived in half[place]way ( [facility]) and felt attachment with two workers (two male). She thought about sexually with them. She refused to harm herself today or tried to. She denied to take any drugs, medications or anythings today.
--- NOTE | 2021-10-18 21:28 | NUR ---
Patient is sleeping, no acute distress.
[2021-10-18 21:45] LABS: BACTERIA,URINE FEW /HPF (None Seen); COARSE GRANULAR CASTS,URINE 0-10 /LPF (None Seen); MUCUS,URINE 1+ /LPF (None Seen); RBC,URINE 0-3 /HPF (0-3)
--- NOTE | 2021-10-18 23:55 | NUR ---
COVID-19 and MRSA swabs collected and sent to lab.
--- NOTE | 2021-10-19 00:51 | NUR ---
Patient is sleeping, no acute distress.
--- NOTE | 2021-10-19 01:15 | NUR ---
Patient resting quietly. No acute distress noted. Vital signs within normal range.
--- NOTE | 2021-10-19 02:40 | NUR ---
Patient resting quietly. No acute distress noted. Vital signs within normal range.
--- NOTE | 2021-10-19 04:24 | NUR ---
Patient resting quietly. No acute distress noted. Vital signs within normal range.
--- NOTE | 2021-10-19 05:38 | NUR ---
ER at bedside examining patient.
--- NOTE | 2021-10-19 06:38 | NUR ---
Patient resting quietly. No acute distress noted. Vital signs within normal range.
--- NOTE | 2021-10-19 07:04 | NUR ---
Report given to MAGDALENA Rosario and endorse care of patient.
--- NOTE | 2021-10-19 07:05 | NUR ---
REPORT RECIEVED FROM MAGDALENA JONES FOR CONTINUING CARE. PT SLEEPING IN GURNEY, EASILY ARROUSABLE, EVEN UNLABORED RESPIRATIONS, NO DISTRESS NOTED
--- NOTE | 2021-10-19 08:38 | NUR ---
Dr. uHnter at bedside for consult
--- NOTE | 2021-10-19 09:29 | NUR ---
CALL TO [phone] [facility], PAOLA OSBORN WHO STATES HE WILL CALL BACK WITH PICK-UP INFO.
--- NOTE | 2021-10-19 09:35 | NUR ---
BREAKFAST TRAY PROVIDED TO PT
--- NOTE | 2021-10-19 10:32 | NUR ---
CALL BACK TO LONG TERM PAOLA OSBORN, STATES THE EARLIEST PICKUP TIME IS 1300.
--- NOTE | 2021-10-19 11:30 | NUR ---
PT SLEEPING IN GURNEY, EASILY ARROUSABLE, EVEN UNLABORED RESPIRATIONS, NO DISTRESS NOTED
--- NOTE | 2021-10-19 12:30 | NUR ---
PT PROVIDED WITH LUNCH TRAY
--- NOTE | 2021-10-19 13:30 | NUR ---
LEFT FOR HALFWAY, NO ANSWER. AWAITING CALL BACK FOR INFORMATION CONSULTANT INFORMATION
--- NOTE | 2021-10-19 14:00 | NUR ---
CALL TO OCTAVIA AT [facility] FOR FOLLOW UP ON PICKUP STATUS
[2021-10-19 14:04] VITALS: BP_SYST 110
--- NOTE | 2021-10-19 14:04 | NUR ---
Patient given written and verbal discharge instructions and verbalizes understanding. ER MD discussed with patient the results and treatment provided. Patient in stable condition. ID arm band removed. NO Rx given. Patient educated on pain management and to follow up with PMD. Pain Scale 0/10. Opportunity for questions provided and answered. Medication side effect fact sheet provided.
== END 2021-10-19 14:04 | disposition home or self-care (01) ==
LOC: SED 18:03
DX: R45.850 Homicidal ideations (principal); F32.9 Major depressive disorder, single episode, unspecified; I10 Essential (primary) hypertension; E11.9 Type 2 diabetes mellitus without complications; Z88.0 Allergy status to penicillin; Z88.1 Allergy status to other antibiotic agents; Z88.2 Allergy status to sulfonamides; Z79.899 Other long term (current) drug therapy; Z20.822 Contact with and (suspected) exposure to COVID-19
CPT/HCPCS: 36415; 80053; 80061; 80307; 81000; 83036; 85025; 87081; 87086; 87426; 99284; G0480; G0481; G0482

== ENCOUNTER 2022-02-24 00:31 | Emergency (ER) | payer MEDICAID ==
[~2022-02-24] VITALS: Ht 170.2 cm; Wt 149.7 kg
[2022-02-24 00:31] VITALS: BP_SYST 101
[2022-02-24 02:08] LABS: BASOPHILS # (AUTO) 0.1 K/uL (0.0-0.2); BASOPHILS % (AUTO) 1.7 % (0.0-2.0); EOSINOPHILS # (AUTO) 0.3 K/uL (0.0-0.4); EOSINOPHILS % (AUTO) 4.7 % (0.0-4.0); HEMATOCRIT 36.7 % (36-48); LYMPHOCYTES # (AUTO) 2.3 K/uL (1.0-5.5); LYMPHOCYTES % (AUTO) 38.7 % (20.5-51.5); MEAN CORPUSCULAR HEMOGLOBIN 28 pg (27-31); MEAN CORPUSCULAR HGB CONC 33 % (32-36); MEAN CORPUSCULAR VOLUME 86 fL (79.0-98.0); MONOCYTES # (AUTO) 0.3 K/uL (0.0-1.0); MONOCYTES % (AUTO) 5.8 % (1.7-9.3); NEUTROPHILS % (AUTO) 49.1 % (40.0-70.0); PLATELET COUNT (AUTO) 288 K/uL (130-430); RED CELL DISTRIBUTION WIDTH 14.4 % (9.0-15.0); WHITE BLOOD COUNT (AUTO) 6.1 K/uL (4.8-10.8)
[2022-02-24 02:25] LABS: ANION GAP 11 (5-15); CALCIUM 8.7 mg/dL (8.4-11.0); CHLORIDE 101 mmol/L (98-107); CREATININE 0.49 mg/dL (0.55-1.30); GLUCOSE 115 mg/dL (70-99); POTASSIUM 3.5 mmol/L (3.5-5.1); SODIUM SERUM 138 mmol/L (136-145); UREA NITROGEN, BLOOD 11 mg/dL (8-21)
[2022-02-24 02:30] LABS: ALANINE AMINOTRANSFERASE 20 U/L (12-78); ASPARTATE AMINOTRANSFERASE 7 U/L (10-37); TOTAL BILIRUBIN 0.3 mg/dL (0.0-1.0)
[2022-02-24 02:31] LABS: GFR AFRICAN AMERICAN 183 mL/min (>90)
[2022-02-24 02:32] LABS: ALCOHOL, BLOOD < 3 mg/dL (<10)
[2022-02-24 02:46] LABS: ACETAMINOPHEN < 1 ug/mL (1-30)
[2022-02-24 05:21] LABS: BILIRUBIN,URINE NEGATIVE (NEGATIVE); BLOOD, URINE NEGATIVE (NEGATIVE); CLARITY/URINE CLEAR (CLEAR); COLOR,URINE YELLOW (YELLOW); GLUCOSE,URINE NEGATIVE (NEGATIVE); KETONES,URINE NEGATIVE (NEGATIVE); LEUKOCYTE ESTERASE ,URINE NEGATIVE (NEGATIVE); NITRITE, URINE NEGATIVE (NEGATIVE); PROTEIN URINE NEGATIVE (NEGATIVE); UROBILINOGEN,URINE 0.2 (0.2-1.0)
[2022-02-24 05:28] LABS: BARBITURATE, URINE NEGATIVE (NEG <=200); BENZODIAZEPINE, URINE NEGATIVE (NEG <=150); CANNABINOID, URINE NEGATIVE (NEG <=50); COCAINE, URINE NEGATIVE (NEG <=150); METHAMPHETAMINES SCREEN,URINE NEGATIVE (NEG <=500); OPIATE, URINE NEGATIVE (NEG <=100); PHENCYCLIDINE SCREEN,URINE NEGATIVE (NEG <=25); UR TRICYCLIC ANTIDEPRESSANTS NEGATIVE (NEG <=300); URINE AMPHETAMINE NEGATIVE (NEG <=500); URINE METHADONE NEGATIVE (NEG <=200); URINE OXYCODONE SCREEN NEGATIVE (NEG <=100); URINE PROPOXYPHENE SCREEN NEGATIVE (NEG <=300)
[2022-02-24 09:56] VITALS: BP_SYST 148
== END 2022-02-24 09:58 ==
LOC: SED 00:31
DX: R45.851 Suicidal ideations (principal); E11.9 Type 2 diabetes mellitus without complications; I10 Essential (primary) hypertension; Z88.0 Allergy status to penicillin; Z88.2 Allergy status to sulfonamides; Z20.822 Contact with and (suspected) exposure to COVID-19
CPT/HCPCS: 36415; 71045; 74018; 80053; 80307; 81003; 81025; 84702; 85025; 87426; 99285; G0480; G0481; G0482

== ENCOUNTER 2022-05-09 17:21 | Emergency (ER) | payer MEDICAID ==
[~2022-05-09] VITALS: Ht 170.2 cm; Wt 133.4 kg
[2022-05-09 17:35] VITALS: BP_SYST 130
[2022-05-10 02:15] VITALS: BP_SYST 129
== END 2022-05-10 02:45 ==
LOC: SED 17:21
DX: R45.851 Suicidal ideations (principal); E11.9 Type 2 diabetes mellitus without complications; E66.9 Obesity, unspecified; F20.9 Schizophrenia, unspecified; I10 Essential (primary) hypertension; Z88.0 Allergy status to penicillin; Z88.1 Allergy status to other antibiotic agents; Z88.2 Allergy status to sulfonamides; Z79.899 Other long term (current) drug therapy
CPT/HCPCS: 71045; 74018; 81025; 99284

== ENCOUNTER 2022-06-03 14:29 | Inpatient (IN) | payer MEDICAID ==
[~2022-06-03] VITALS: Ht 170.2 cm; Wt 131.5 kg
[2022-06-03 14:45] VITALS: BP_SYST 149
--- NOTE | 2022-06-03 14:45 | NUR ---
ER DR. BHATIA EXAMINING PT ON [facility]
--- NOTE | 2022-06-03 14:48 | NUR ---
PT TRIAGED AND ON GURNEY ACCOMPANIED BY EMT'S, AWARE OF MSE NEEDS
--- NOTE | 2022-06-03 14:50 | NUR ---
PT LEILANI FROM [facility] AFTER PT STATES SHE SWALLOWED ONE AA BATTERY. PT IS ON A 5150 DTS, SITTER AT BEDSIDE FROM [facility]. PT IS AAOX4, VSS
--- NOTE | 2022-06-03 16:10 | NUR ---
Patient transported to radiology via GURNEY, accompanied by STAFF & SITTER.
--- NOTE | 2022-06-03 16:50 | NUR ---
Urine collected: clean catch,Dyan color, clear, sent to lab.
--- NOTE | 2022-06-03 17:17 | NUR ---
MARIELAID swabbed, sent to lab.
[2022-06-03 17:22] LABS: BILIRUBIN,URINE NEGATIVE (NEGATIVE); BLOOD, URINE 3+ (NEGATIVE); GLUCOSE,URINE NEGATIVE (NEGATIVE); KETONES,URINE NEGATIVE (NEGATIVE); LEUKOCYTE ESTERASE ,URINE TRACE (NEGATIVE); NITRITE, URINE NEGATIVE (NEGATIVE); PH,URINE 6.5 (5.0-8.0); PROTEIN URINE 1+ (NEGATIVE); UROBILINOGEN,URINE 0.2 (0.2-1.0)
[2022-06-03 17:26] LABS: CLARITY/URINE HAZY (CLEAR); COLOR,URINE RED (YELLOW)
[2022-06-03 17:29] LABS: BACTERIA,URINE FEW /HPF (None Seen); MUCUS,URINE None Seen /LPF (None Seen); RBC,URINE >100 /HPF (0-3)
[2022-06-03] MEDS ORDERED: 0.45% NACL 1,000 ML IV SCH (17:30)
[2022-06-03 17:32] LABS: BASOPHILS % (AUTO) 0.6 % (0.0-2.0); EOSINOPHILS # (AUTO) 0.1 K/uL (0.0-0.4); HEMATOCRIT 39.2 % (36-48); HEMOGLOBIN 12.9 g/dL (12.0-16.0); LYMPHOCYTES # (AUTO) 1.9 K/uL (1.0-5.5); LYMPHOCYTES % (AUTO) 29.9 % (20.5-51.5); MEAN CORPUSCULAR HEMOGLOBIN 28 pg (27-31); MEAN CORPUSCULAR HGB CONC 33 % (32-36); MEAN CORPUSCULAR VOLUME 85 fL (79.0-98.0); MONOCYTES # (AUTO) 0.4 K/uL (0.0-1.0); MONOCYTES % (AUTO) 5.9 % (1.7-9.3); NEUTROPHILS % (AUTO) 61.6 % (40.0-70.0); PLATELET COUNT (AUTO) 113 K/uL (130-430); RED BLOOD CELL COUNT(AUTO) 4.59 MIL/uL (4.2-6.2); RED CELL DISTRIBUTION WIDTH 15.3 % (9.0-15.0); WHITE BLOOD COUNT (AUTO) 6.5 K/uL (4.8-10.8)
[2022-06-03 17:35] LABS: CALCIUM 8.6 mg/dL (8.4-11.0); POTASSIUM 3.7 mmol/L (3.5-5.1)
[2022-06-03 17:36] LABS: CREATININE 0.45 mg/dL (0.55-1.30)
[2022-06-03] MEDS ORDERED: MORPHINE 4 MG INJ. 4 MG/ML VIAL IVP ONE (19:00)
[2022-06-03 20:00] VITALS: BP_SYST 122
[2022-06-03] MEDS ORDERED: D5 IV SCH (20:15)
[2022-06-03] MEDS ORDERED: [UNRECOGNIZED DRUG - OTHER] IV SCH (20:15)
[2022-06-03] MEDS ORDERED: GLUCOSE (DEXTROSE) ORAL GEL -Adults PO PRN (20:30)
[2022-06-03] MEDS ORDERED: D5W 1,000 ML IV PRN (20:30)
[2022-06-03] MEDS ORDERED: DEXTROSE 50% JECT 50 ML DISP.SYRIN IVP PRN (20:30)
[2022-06-03] MEDS ORDERED: LABETALOL HCL 20 MG/4 ML CARTRIDGE IVP PRN (20:45)
[2022-06-03 21:09] LABS: ACETAMINOPHEN < 1 ug/mL (1-30)
[2022-06-03] MEDS ORDERED: ONDANSETRON HCL 4 MG/2 ML VIAL IVP ONE (22:15)
[2022-06-03] MEDS ORDERED: SIMETHICONE 40 MG/0.6 ML ML ONE (23:25)
[2022-06-03] MEDS ORDERED: MIDAZOLAM HCL 5 MG/5 ML VIAL ONE (23:26)
[2022-06-03] MEDS ORDERED: fentaNYL CITRATE/PF 100 MCG/2 ML AMP ONE (23:26)
[2022-06-03 23:45] LABS: HCG,QUAL RESULT NEGATIVE (NEGATIVE)
[2022-06-04] MEDS ORDERED: ACETAMINOPHEN 500 MG TABLET PO ONE (01:00)
[2022-06-04] MEDS ORDERED: GOLYTELY / COLYTE SOLUTION 4 LITERS PO ONE (07:30)
[2022-06-04] MEDS ORDERED: BISACODYL 5 MG TABLET.DR (DULCOLAX) PO ONE (07:30)
--- NOTE | 2022-06-04 08:59 | NUR ---
Admit bed requested Patient will be admitted to care of . Admitted to MED SURG unit. Diagnosis SCHIZOPHRENIA Inpatient (Yes or No) YES Observation (Yes or No) NO Orientation concerns or request close to nursing station (Yes or No) NO Covid Status NEG On vent or bipap NO Isolation requirements NO Needs a sitter YES From Home (Yes or if No enter name of facility) NO Requires Dialysis (Yes or No) NO Med Rec Completed (Yes of No) YES
[2022-06-04] MEDS ORDERED: ENOXAPARIN SODIUM 40 MG/0.4 ML SYRINGE SUBCUT SCH (09:00)
[2022-06-04] MEDS ORDERED: DIVA250T PO (09:07)
[2022-06-04] MEDS ORDERED: FAMO20TA8 PO (09:07)
[2022-06-04] MEDS ORDERED: OLAN15TA3 PO (09:07)
[2022-06-04] MEDS ORDERED: METF-518 PO (09:07)
[2022-06-04] MEDS ORDERED: METO25TA6 PO (09:07)
[2022-06-04] MEDS ORDERED: LIP10 PO (09:07)
[2022-06-04] MEDS ORDERED: ARIP10TA9 PO (09:07)
[2022-06-04] MEDS ORDERED: DOCU-144 PO (09:07)
[2022-06-04] MEDS ORDERED: SERT-131 PO (09:07)
[2022-06-04] MEDS ORDERED: BUSP10TA3 PO (09:07)
[2022-06-04] MEDS ORDERED: INSULIN Lispro 100 UNITS/ML VIAL (humaLOG) ONE (09:42)
[2022-06-04] MEDS: INSULIN LISPRO SLIDING SCALE 100 UNITS/ML VIAL (humaLOG) SUBCUT PRN (09:48)
[2022-06-04 09:57] LABS: BASOPHILS % (AUTO) 0.8 % (0.0-2.0); EOSINOPHILS # (AUTO) 0.2 K/uL (0.0-0.4); EOSINOPHILS % (AUTO) 3.3 % (0.0-4.0); HEMATOCRIT 36.3 % (36-48); HEMOGLOBIN 12.1 g/dL (12.0-16.0); LYMPHOCYTES # (AUTO) 1.5 K/uL (1.0-5.5); LYMPHOCYTES % (AUTO) 30.2 % (20.5-51.5); MEAN CORPUSCULAR HEMOGLOBIN 28 pg (27-31); MEAN CORPUSCULAR HGB CONC 33 % (32-36); MEAN CORPUSCULAR VOLUME 85 fL (79.0-98.0); MONOCYTES # (AUTO) 0.4 K/uL (0.0-1.0); MONOCYTES % (AUTO) 7.4 % (1.7-9.3); NEUTROPHILS % (AUTO) 58.3 % (40.0-70.0); PLATELET COUNT (AUTO) 283 K/uL (130-430); RED BLOOD CELL COUNT(AUTO) 4.29 MIL/uL (4.2-6.2); RED CELL DISTRIBUTION WIDTH 15.3 % (9.0-15.0); WHITE BLOOD COUNT (AUTO) 5.1 K/uL (4.8-10.8)
[2022-06-04 10:07] LABS: ALBUMIN 2.6 g/dL (3.4-4.8); CALCIUM 8.3 mg/dL (8.4-11.0); CREATININE 0.55 mg/dL (0.55-1.30); POTASSIUM 3.7 mmol/L (3.5-5.1); TOTAL BILIRUBIN 0.1 mg/dL (0.0-1.0)
[2022-06-04] MEDS: KETOROLAC TROMETHAMINE 15 MG VIAL IVP PRN ×2 (12:21→20:12)
[2022-06-04] MEDS ORDERED: BISACODYL 5 MG TABLET.DR (DULCOLAX) ONE (13:21)
--- NOTE | 2022-06-04 15:01 | NUR ---
Recieved pt from MAGDALENA Desir, awaiting Sitter services due at 1500. Pt is cooperative and sitting up requesting dietary consumption. Followed up with Dietary for liquid diet.
--- NOTE | 2022-06-04 15:18 | NUR ---
pt is drinking Golytlely slowly 16 ounces complete at this time. Monitoring for effect.
[2022-06-04] MEDS ORDERED: ONDANSETRON HCL 4 MG/2 ML VIAL IVP ONE (16:15)
[2022-06-04] MEDS ORDERED: ONDANSETRON HCL 4 MG/2 ML VIAL ONE (16:20)
--- NOTE | 2022-06-04 16:47 | NUR ---
Pt has drank 24 additional ounces for a total of 40 ounces. Pt is expelling gas and has watery stools at this time.
--- NOTE | 2022-06-04 16:48 | NUR ---
Pt is monitored by a sitter and is cooperative with polite conversation. Pt has requested a visit from jeff Haynes [phone]. Ivy contacted and stated will visit upon transportation availability.
--- NOTE | 2022-06-04 18:33 | NUR ---
PT IS COMFORTABLE DENIES N/V PT VSS, NO ACUTE DISTRESS. PT IS AAOX4. MOTHER AND AUNT VISIT WITH PT FOR 10 MINUTES WITH POSITIVE ENCOURAGEMENT.
--- NOTE | 2022-06-04 19:52 | NUR ---
Patient to be transferred to ICU. Is being transferred due to continued monitoring. Receiving department has accepting physician and available space. Patient belongings inventoried and will be sent with patient. Report called to DIRECTOR REGULATORY COMPLIANCE.
[2022-06-04 20:00] VITALS: BP_SYST 122; BP_SYST 124
--- NOTE | 2022-06-04 20:00 | NUR ---
Opening notes Received report from endorsing morning shift TOOL PLANNER for continuity of care. Patient was transported to the ICU from ER using wheelchair in no signs of distress. Patient's vital signs blood pressure 132/69, heart rate 90, respirations 28, and SPO2 96% on room air. Patient is alert and oriented x4. Bed is locked and in lowest position, fall and safety precautions is in place.
[2022-06-04] MEDS ORDERED: KETOROLAC TROMETHAMINE 15 MG VIAL ONE (20:12)
[2022-06-04] MEDS: D5/0.45 NS 1,000 ML IV SCH (20:15)
--- NOTE | 2022-06-04 23:09 | NUR ---
CONSULTATION PAGED/CALLED Reason for Consultation: HALLUCINATION/POSS. SUICIDE ATTEMPT Person Who was Notified: MESSAGE LEFT ON EXCHANGE MACHINE AT [phone] Consulting Physician: DR. CABRAL Manual Arts Therapist Specialty: PSYCH Ordering Physician: DR. MAN Reason for Consultation: CYLINDRICAL BATTERY INGESTION Person Who was Notified: KARUNA Consulting Physician: DR. MATAMOROS (DR. ANGEL FINISHER TAILOR APPRENTICE) Manual Arts Therapist Specialty: GI Ordering Physician: DR. MAN
[2022-06-05] VITALS: BP_SYST 115
[2022-06-05 04:00] VITALS: BP_SYST 126
[2022-06-05] MEDS: KETOROLAC TROMETHAMINE 15 MG VIAL IVP PRN ×3 (05:04→20:31)
[2022-06-05] MEDS: D5/0.45 NS 1,000 ML IV SCH ×2 (05:39→16:19)
[2022-06-05] MEDS ORDERED: BISACODYL 5 MG TABLET.DR (DULCOLAX) PO PRN (07:45)
[2022-06-05 08:00] VITALS: BP_SYST 105
[2022-06-05 09:11] LABS: BASOPHILS % (AUTO) 0.6 % (0.0-2.0); EOSINOPHILS # (AUTO) 0.1 K/uL (0.0-0.4); EOSINOPHILS % (AUTO) 2.2 % (0.0-4.0); HEMATOCRIT 37.9 % (36-48); HEMOGLOBIN 12.7 g/dL (12.0-16.0); LYMPHOCYTES # (AUTO) 1.4 K/uL (1.0-5.5); LYMPHOCYTES % (AUTO) 23.7 % (20.5-51.5); MEAN CORPUSCULAR HEMOGLOBIN 28 pg (27-31); MEAN CORPUSCULAR HGB CONC 33 % (32-36); MEAN CORPUSCULAR VOLUME 85 fL (79.0-98.0); MONOCYTES # (AUTO) 0.4 K/uL (0.0-1.0); NEUTROPHILS # (AUTO) 3.9 K/uL (1.8-7.7); NEUTROPHILS % (AUTO) 66.5 % (40.0-70.0); PLATELET COUNT (AUTO) 292 K/uL (130-430); RED BLOOD CELL COUNT(AUTO) 4.48 MIL/uL (4.2-6.2); WHITE BLOOD COUNT (AUTO) 5.9 K/uL (4.8-10.8)
[2022-06-05 09:19] LABS: ALBUMIN 2.7 g/dL (3.4-4.8); CALCIUM 8.4 mg/dL (8.4-11.0); CREATININE 0.49 mg/dL (0.55-1.30); POTASSIUM 3.9 mmol/L (3.5-5.1); TOTAL BILIRUBIN 0.2 mg/dL (0.0-1.0)
--- NOTE | 2022-06-05 09:47 | NUR ---
IV RE-INSERTION: Complaining of leaking to IV site. Restarted on left forearm. Successful after 2 attempts. Resumed current IVF of D5 1/2 NS and regulated at 100 mls per hour. Will observe for any signs of infiltration.
[2022-06-05] MEDS: POLYETHYLENE GLYCOL 3350, 17 GM/ POWD.PACK PO SCH (09:50)
--- NOTE | 2022-06-05 11:24 | NUR ---
POISON CONTROL CALLED TO GET AND UPDATE ON PT. THEY WILL CALL TOMORROW TO GET ANOTHER UPDATE.
[2022-06-05 12:00] VITALS: BP_SYST 101
[2022-06-05 16:00] VITALS: BP_SYST 108
--- NOTE | 2022-06-05 18:50 | NUR ---
GAVE BEDSIDE REPORT TO HR ASSISTANT RN ON MED/SURG. PT VITALS STABLE. PT DID NOT PASS THE BATTERY IN HER STOOL. 5150 PAPERWORK GIVEN TO SITTER. CHART GIVEN TO RN.
--- NOTE | 2022-06-05 19:00 | NUR ---
Received the patient from ICU Nurse Eugenie. We will monitor the patient on bedside.
[2022-06-05 20:00] VITALS: BP_SYST 124
[2022-06-06] VITALS: BP_SYST 115
[2022-06-06] MEDS: D5/0.45 NS 1,000 ML IV SCH ×3 (02:23→21:26)
[2022-06-06] MEDS: KETOROLAC TROMETHAMINE 15 MG VIAL IVP PRN ×2 (03:53→21:25)
[2022-06-06 04:02] VITALS: BP_SYST 125
--- NOTE | 2022-06-06 06:29 | NUR ---
PATIENT WAS ASLEEP ALL NIGHT. STABLE. NO DISTRESS. PIV INTACT RUNNING WITH NS AT 100 ML/HR. SITE APPEARS GOOD. SITTER REMAINS AT THE BEDSIDE. PATIENT HAS NO COMPLAINTS SO FAR. KEPT WARM AND COMFORTABLE. VS STABLE. ABLE TO MAKE NEEDS KNOWN. ALL NEEDS ATTENDED. CALL LIGHT PLACED WITHIN REACH. MONITORED CLOSELY.
--- NOTE | 2022-06-06 07:15 | NUR ---
OPENING NOTE: REPORT RCVD AT BEDSIDE FROM OUTGOING NOC RN, ALL CARES ASSUMED. SITTER REMAINS AT BEDSIDE FOR 1:1
[2022-06-06 08:00] VITALS: BP_SYST 121
--- NOTE | 2022-06-06 08:15 | NUR ---
CLEAR LIQUID TRAY BROUGHT TO BEDSIDE, PATIENT TOLERATING WELL.
--- NOTE | 2022-06-06 08:30 | NUR ---
X-RAY AT BEDSIDE.
[2022-06-06] MEDS: POLYETHYLENE GLYCOL 3350, 17 GM/ POWD.PACK PO SCH (08:35)
[2022-06-06 08:53] LABS: BASOPHILS # (AUTO) 0.1 K/uL (0.0-0.2); BASOPHILS % (AUTO) 1.4 % (0.0-2.0); EOSINOPHILS # (AUTO) 0.2 K/uL (0.0-0.4); EOSINOPHILS % (AUTO) 2.5 % (0.0-4.0); HEMATOCRIT 38.2 % (36-48); HEMOGLOBIN 12.9 g/dL (12.0-16.0); LYMPHOCYTES # (AUTO) 1.8 K/uL (1.0-5.5); LYMPHOCYTES % (AUTO) 27.5 % (20.5-51.5); MEAN CORPUSCULAR HEMOGLOBIN 29 pg (27-31); MEAN CORPUSCULAR HGB CONC 34 % (32-36); MEAN CORPUSCULAR VOLUME 85 fL (79.0-98.0); MONOCYTES # (AUTO) 0.4 K/uL (0.0-1.0); MONOCYTES % (AUTO) 5.3 % (1.7-9.3); NEUTROPHILS # (AUTO) 4.2 K/uL (1.8-7.7); NEUTROPHILS % (AUTO) 63.3 % (40.0-70.0); PLATELET COUNT (AUTO) 302 K/uL (130-430); RED BLOOD CELL COUNT(AUTO) 4.51 MIL/uL (4.2-6.2); WHITE BLOOD COUNT (AUTO) 6.6 K/uL (4.8-10.8)
[2022-06-06 09:27] LABS: ALBUMIN 2.7 g/dL (3.4-4.8); CALCIUM 8.3 mg/dL (8.4-11.0); CREATININE 0.72 mg/dL (0.55-1.30); POTASSIUM 3.6 mmol/L (3.5-5.1); TOTAL BILIRUBIN 0.2 mg/dL (0.0-1.0)
--- NOTE | 2022-06-06 09:29 | NUR ---
DR. CARRERO MAKING ROUNDS, BEDSIDE REPORT GIVEN, MD TO REVIEW CHART AND PLACE ORDERS.
--- NOTE | 2022-06-06 09:51 | NUR ---
CONSULTATION PAGED REASON FOR CONSULTATION:FB INGESTION WAS CONSULT CALLED?Y -PERSON WHO WAS NOTIFIED:GLEN CONSULTING PHYSICIAN:ANNELIESE FLORIAN REINSTATEMENT CLERK SPECIALTY:SURGEON REINSTATEMENT CLERK PHONE NUMBER:[phone] REQUESTING PHYSICIANJACQUES KULKARNI
--- NOTE | 2022-06-06 10:48 | NUR ---
FRANCOISE FROM POISON CONTROL FOR UPDATES, REPORT GIVEN AND SHE IS AWARE OF SURGERY CONSULT. FRANCOISE STATES POISON CONTROL WILL FOLLOW PATIENT WHILE SHE REMAINS IN HOSPITAL.
--- NOTE | 2022-06-06 11:20 | NUR ---
FOOD AND BEVERAGE SERVER In an effort to obtain clarification on patient's stay and psych hold with [facility], CRISTELA contacted [facility] . According to Nursing Workers Compensation Coordinator Moreno, patient's hold was not extended while in their facility. He also shared they do not hold beds once a patient has been admitted into a hospital. Patient will need to be on a PSych hold to be transferred to their facility, or voluntarily request treatment.
--- NOTE | 2022-06-06 11:25 | NUR ---
DR. DORMAN CALLED UNIT FOR CONSULT REPORT, PATIENT INFORMATION GIVEN AND DR. DORMAN WILL COME SEE PATIENT AT BEDSIDE.
--- NOTE | 2022-06-06 11:26 | NUR ---
PARACHUTE INSPECTOR AT BEDSIDE
--- NOTE | 2022-06-06 11:30 | NUR ---
POST SECONDARY PROFESSIONAL CRISTELA Guy responded to generated referrals for Pt at suicidal risk and Pt. needs social work administrator referral. Prior to patient contact, TUNNELING MACHINE OPERATOR reviewed chart and located Psych 5150 hold established 06/02/2022 @23:45. CRISTELA Guy also consulted with assigned RN Shruthi to obtain update on patients current status. CRISTELA Guy met with patient at bedside. Patient was awake and sitting up in bed. TUNNELING MACHINE OPERATOR completed introductions, reason for referral and provided business card. Current concern- Patient was brought to ER after ingesting AA battery and expressing wanting to Suicidality- Patient shared she was in group at [facility] and saw a battery sitting on counter. She shared she heard a voice telling her to swallow the battery and kill herself, so I took the battery out of the remote and swallowed it. Patient shared she then informed facility personnel and they sought medical support. Patient discloses a history of ingesting metal objects, including a screw, when attempting suicide. Patient DENIES BEING SUICIDAL AT THIS TIME, and shares she has not felt this way since Monday06/03/2022 when she ingested battery. Mental Health History- Patient discloses prior diagnosis of SCHIZOEFFECTIVE DISORDER AND BIPOLOR DISORDER. She shared several inpatient stays in psych facilities to address suicide attempts and symptoms related to mental health condition. She shares a history of auditory hallucinations, with these voices telling her To hurt myself or kill myself. Bridgette also shares a history of ingesting metal objects. Patient shares she received weekly individual therapy in her residence, and meets with a psychiatrist once a month. Conservatorship- Patient discloses she is currently under conservatorship with [facility] and her Acoustical Tile Drill Press Operator is Ritesh Seay- Patient currently resides in [place] [address]. She shared Rui Tati is the weblogic administrator and part of her support network. Her mother Belen Vieyra and Aunt Tawnya Toribio continue to provide support to the patient as well. According to patient she is . She also shared she has a boyfriend, Flako, of 6 years whom she met in [facility] while receiving psych treatment. She shares he is very supportive. CRISTELA Guy and patient discussed the importance of continued participation in individual therapy and remaining med compliant with both her psych meds and any prescribe meds to address physical health. Patient denies any current suicidal or homicidal thoughts and denies auditory hallucinations at this time. CRISTELA encouraged patient to notify staff if she begins to have hallucinations or suicidal/homicidal feelings. Patient provided permission to contact all persons mentioned above. CRISTELA will continue to be available as needed. Addendum: 06/07/22 at 1503 by Malena ARCHIBALD Amended: Links added.
--- NOTE | 2022-06-06 11:32 | NUR ---
PATIENTS ON FILE IS NOT VALID ()
--- NOTE | 2022-06-06 11:45 | NUR ---
PER DR. DORMAN STAT CT ABD / PELVIS ORDERED. ORDER PLACED AND TRANSCRIBED.
--- NOTE | 2022-06-06 11:53 | NUR ---
CLOTHING BROUGHT BY FRIEND, SECURITY CHECKED ITEMS TO ENSURE NO SAFETY HAZARDS.
[2022-06-06 12:00] VITALS: BP_SYST 109
--- NOTE | 2022-06-06 12:20 | NUR ---
ASTRO TECHNICIAN CRISTELA Guy contacted both Rui Duffy and [facility] to obtain clarification on patient's conservatorship. Voicemail was left requesting call back. Addendum: 06/06/22 at 1442 by Malena Clancy ACID BLOWER CRISTELA Guy received call back from Minor Duffy with [facility]. According to Rui, this is an Adult Residential Facility. He also shared that if patient will be discharged, she can return to [facility] but she will need a psych consult stating she is safe to return to their facility. Rui also confirmed patient is under conservatorship. According to him, his understanding is patient can consent to minor treatments, but "for bigger things, like if anesthesia is needed" Conservator will need to be contacted. Rui will also attempt contact to patient's professional services specialist Ritesh and provided direct number . Addendum: 06/06/22 at 1632 by Malena Clancy MSW ACID BLOWER attempted another contact with [facility] Buzzle Buffer Ritesh Parks (additional number provided by Rui Duffy). Voicemail requesting call back was left with this ACID BLOWER' and Nurses Stations call back numbers.
--- NOTE | 2022-06-06 15:00 | NUR ---
PATIENT TAKEN TO CT WITH SITTER AT SIDE
--- NOTE | 2022-06-06 15:15 | NUR ---
PATIENT RETURNED VIA WC FROM CT WITH SITTER, TOLERATED PROCEDURE WELL.
[2022-06-06 16:00] VITALS: BP_SYST 114
--- NOTE | 2022-06-06 16:00 | NUR ---
PATIENT REMAINS STABLE IN NO ACUTE DISTRESS AND OR DISCOMFORT.
--- NOTE | 2022-06-06 18:18 | NUR ---
PATIENT C/O 08/29 ABD PAIN, PAGED DR. DORMAN TO MAKE HIM AWARE.
--- NOTE | 2022-06-06 18:39 | NUR ---
[address]ND PAGE TO DR. DORMAN, PENDING RETURN CALL. PATIENT STATES, "THE PAIN IS GETTING BETTER".
--- NOTE | 2022-06-06 18:40 | NUR ---
PATIENT PULLED OUT PIV, NEW 20G PIV PLACED TO RIGHT AC, FLASH AND BLOOD RETURN PRESENT. PATIENT TOLERATED WELL.
--- NOTE | 2022-06-06 19:22 | NUR ---
CLOSING NOTE: REPORT GIVEN TO NOC RN, ALL CARES ENDORSED.
[2022-06-06 20:00] VITALS: BP_SYST 132
--- NOTE | 2022-06-06 20:00 | NUR ---
RECEIVED PT FROM DAY SHIFT, PT AOX4, NO ACUTE DISTRESS OR DISCOMFORT NOTED, BREATHING EVEN AND UNLABORED, IV SITE IS INTACT AND PATENT INFUSING D5 1/2 NS AT 100CC/HR, ROOM AIR SATURATING WELL,PT ON 1:1 SITTER OBSERVATION FALL AND SAFETY PRECAUTIONS IN PLACE WITH BED IN LOWEST POSITION, BED ALARM ON, AND CALL LIGHT WITHIN REACH,PENDING DR. DORMAN TO ROUND ON PT, WILL CONTINUE TO MONITOR.
--- NOTE | 2022-06-06 22:47 | NUR ---
DR. DORMAN ROUNDED ON PT, SEE MD NOTES AND ORDERS.
[2022-06-07] VITALS: BP_SYST 107
--- NOTE | 2022-06-07 | NUR ---
NO CHANGES NOTED FROM PREVIOUS ASSESSMENT, PT IN BED ASLEEP, 1:1 SITTER OBSERVATION STILL IN PLACE, VSS, REPOSITIONS SELF PER COMFORT, WILL CONTINUE TO MONITOR.
--- NOTE | 2022-06-07 01:56 | NUR ---
CHANGE OF ASSIGNMENT REPORT GIVEN TO MAGDALENA AWAD FOR CONTINUITY OF CARE, ALL QUESTIONS WERE ANSWERED AND RN VERBALIZED UNDERSTANDING.
--- NOTE | 2022-06-07 07:00 | NUR ---
pt iv access/ site swollen and painful.
[2022-06-07 08:00] VITALS: BP_SYST 128
--- NOTE | 2022-06-07 08:00 | NUR ---
new iv access started by conveyor line battery charger lora. pt is hard stick. previous iv not working , it is leaking and iv site is swollen and painful.
[2022-06-07 08:09] LABS: BASOPHILS # (AUTO) 0.1 K/uL (0.0-0.2); EOSINOPHILS # (AUTO) 0.2 K/uL (0.0-0.4); EOSINOPHILS % (AUTO) 2.6 % (0.0-4.0); HEMATOCRIT 39.4 % (36-48); HEMOGLOBIN 13.2 g/dL (12.0-16.0); LYMPHOCYTES # (AUTO) 1.7 K/uL (1.0-5.5); LYMPHOCYTES % (AUTO) 28.3 % (20.5-51.5); MEAN CORPUSCULAR HEMOGLOBIN 28 pg (27-31); MEAN CORPUSCULAR HGB CONC 33 % (32-36); MEAN CORPUSCULAR VOLUME 84 fL (79.0-98.0); MONOCYTES # (AUTO) 0.4 K/uL (0.0-1.0); MONOCYTES % (AUTO) 7.4 % (1.7-9.3); NEUTROPHILS # (AUTO) 3.7 K/uL (1.8-7.7); NEUTROPHILS % (AUTO) 60.7 % (40.0-70.0); PLATELET COUNT (AUTO) 319 K/uL (130-430); RED BLOOD CELL COUNT(AUTO) 4.67 MIL/uL (4.2-6.2); WHITE BLOOD COUNT (AUTO) 6.1 K/uL (4.8-10.8)
--- NOTE | 2022-06-07 08:12 | NUR ---
dr olivia here and seen and spoke with pt re poc.
[2022-06-07] MEDS: D5/0.45 NS 1,000 ML IV SCH ×2 (08:15→11:57)
[2022-06-07] MEDS: POLYETHYLENE GLYCOL 3350, 17 GM/ POWD.PACK PO SCH ×2 (08:24→09:27)
--- NOTE | 2022-06-07 08:25 | NUR ---
ssw here and spoke with pt.
--- NOTE | 2022-06-07 08:27 | NUR ---
ELECTRICAL AND INSTRUMENT TECHNICIAN CRISTELA Healyette received a call from [facility] Classroom Technology Coach Ritesh Wade confirming patient under [facility] and is unable to consent to procedures requiring anesthesia. RN POSTPARTUM faxed Ritesh progress notes for nurse review, and plan is to fax consent forms when obtained/as needed for patient procedures. RN POSTPARTUM consulted with assigned RN Garland and informed him patient is unable to consent to some medical interventions, and consent forms would need to be faxed to [facility] Conservator. RN will update RN POSTPARTUM as needed RN POSTPARTUM will continue to be available as needed. Addendum: 06/07/22 at 1143 by Malena ARCHIBALD CRISTELA Guy received call from Ritesh, requesting admitting information. RN POSTPARTUM also faxed updated progress notes for [facility] Nurse Review in the event consent from [facility] is needed
--- NOTE | 2022-06-07 08:31 | NUR ---
BAIT MAN RATE QUOTING OPERATOR Malena emailed admitting updated Person to Notify and Next of Kin to [facility] Car Park Attendant Ritesh Hadley , and updated address of [address] [place] [id number]
--- NOTE | 2022-06-07 08:33 | NUR ---
STEP DOWN SPECIALIST CARDIAC/VASCULAR SONOGRAPHER Malena met with patient at bedside as a followup from previous visit. Patient shared she was in more pain during this visit. She was able to verbalize her understanding of the plan of care at this time, and understood Conservator would need to complete consents. Mental health- Patient shared she has been hearing voices, but denies SI at this time. CARDIAC/VASCULAR SONOGRAPHER encouraged patient to notify staff if she begins to have thoughts of harming or killing herself. CARDIAC/VASCULAR SONOGRAPHER also informed patient of the contacts [facility] with [facility] (adult residential facility). CARDIAC/VASCULAR SONOGRAPHER informed her Rui from [facility] shared she can return to her residence if she completes a psych eval and they determine it is safe to return. CARDIAC/VASCULAR SONOGRAPHER will continue to be available as needed
[2022-06-07 08:34] LABS: ALBUMIN 2.8 g/dL (3.4-4.8); CALCIUM 8.5 mg/dL (8.4-11.0); CREATININE 0.57 mg/dL (0.55-1.30); POTASSIUM 3.6 mmol/L (3.5-5.1); TOTAL BILIRUBIN 0.5 mg/dL (0.0-1.0)
--- NOTE | 2022-06-07 08:42 | NUR ---
dr patel updated with the result of the kub this morning. md acknowledge receipt of the same, said to keep pt npo and this rn can give the [facility] medicine.
--- NOTE | 2022-06-07 08:47 | NUR ---
per pt during routine assessment she heard voides last night but did not tell the nurse. encouraged pt to inform nurses when she start hearing voices again.
--- NOTE | 2022-06-07 09:29 | NUR ---
pt had small bm, no battery noted.
--- NOTE | 2022-06-07 09:46 | NUR ---
pt in rest room, just voided this time.
--- NOTE | 2022-06-07 10:15 | NUR ---
requested charged guadalupe Castro to check the psyche consult. i was told the dr johnston does not come to the hospital anymore.
--- NOTE | 2022-06-07 10:31 | NUR ---
dr osorio here and seen pt, new orders given.
[2022-06-07] MEDS ORDERED: MAGNESIUM CITRATE 300 ML ORAL SOLUTION PO ONE (11:00)
--- NOTE | 2022-06-07 11:15 | NUR ---
pt in bed, eating early lunch (full liquid) at this time.
--- NOTE | 2022-06-07 11:15 | NUR ---
dr amanda mckeon was here and seen pt.
--- NOTE | 2022-06-07 11:32 | NUR ---
pt drinking the mag citrate ordered by dr osorio.
--- NOTE | 2022-06-07 11:32 | NUR ---
CONSULT TELE PSYCH FOREIGN BODY INGESTION PUT IN REQUEST WITH BERNIE @11:27
--- NOTE | 2022-06-07 11:35 | NUR ---
chargemaster specialist lora sat up the [employer] computer in the room.
--- NOTE | 2022-06-07 12:42 | NUR ---
battery seen by pt in the toilet bowl. paged dr osorio to make aware.
--- NOTE | 2022-06-07 14:45 | NUR ---
BERNIE monitor set up for tele - psyche call from
--- NOTE | 2022-06-07 15:34 | NUR ---
DR PORTILLO CALLED AND SPOKE WITH PT VIA BERNIE. REQUESTED MD TO FAX RESULT TO [phone].
--- NOTE | 2022-06-07 15:42 | NUR ---
Dietitian recommendation: Remain NPO per MD When medically appropriate, consider consistent-CHO diet Refer to nutrition assessment for details SABINA SMITH, KELSEA Addendum: 06/07/22 at [address] Amended: Links added.
--- NOTE | 2022-06-07 16:08 | NUR ---
Given to Dr Arce pt psyche meds list over the phone. said to have the attending take care of the UA result and wait for her recommendation.
--- NOTE | 2022-06-07 16:14 | NUR ---
Requested unit cordell Chandler to page both GI and Attending doctors for update and orders.
--- NOTE | 2022-06-07 16:30 | NUR ---
MICHAEL DONE. Addendum: 06/07/22 at 1642 by Cleveland Obrien RN BY EVALUATION MANAGER.
[2022-06-07 17:08] VITALS: BP_SYST 109
[2022-06-07] MEDS: KETOROLAC TROMETHAMINE 15 MG VIAL IVP PRN (18:07)
--- NOTE | 2022-06-07 18:14 | NUR ---
PT ATE HER DINNER , C/O OF BACK PAIN 04/29. GIVEN TORADOL PER EMAR.
--- NOTE | 2022-06-07 18:17 | NUR ---
DR CARRERO WAS PAGED 2X PER UNIT SEC. NO CALL BACK FROM .
--- NOTE | 2022-06-07 18:48 | NUR ---
PT HAS BEEN STABLE THE WHOLE SHIFT, ABLE TO PASS THE BATTERY, DENIES SUICIDAL IDEATION, NO AUDITORY HALLUCINATON, NO ATTEMP TO SWALLOW ANYTHING. TELEPSYCHE DOCTOR SAW PT. RECOMMENDATION IN CHART. PT'S VITALS WNL. NO FEVER, NO SOB. PT ABLE TO TOLERATE REGULAR DIET. WILL ENDORSE TO NIGHT NURSE.
--- NOTE | 2022-06-07 19:20 | NUR ---
OPENING NOTES Patient resting in bed - no s/s pain or distress noted. Respirations even and unlabored - head of bed elevated. IV site patent - no s/s redness, infection, or infiltration. Bed locked and in lowest position.
[2022-06-07 20:00] VITALS: BP_SYST 122
[2022-06-08] VITALS: BP_SYST 136
[2022-06-08] MEDS: D5/0.45 NS 1,000 ML IV SCH ×2 (04:15→14:15)
--- NOTE | 2022-06-08 07:51 | NUR ---
OPENING NOTE Patient sitting up in bed, awake and oriented x4. No sign of distress and patient denies pain. IV is clean, dry, intact, and running prescribed fluids. Updated the patient on her plan of care for the day, verbalized understanding. Sitter at bedside for 1:1 observation. All needs met at this time and safety checks made.
[2022-06-08 08:00] VITALS: BP_SYST 105
[2022-06-08 08:58] LABS: BASOPHILS % (AUTO) 0.7 % (0.0-2.0); EOSINOPHILS # (AUTO) 0.2 K/uL (0.0-0.4); EOSINOPHILS % (AUTO) 2.5 % (0.0-4.0); HEMATOCRIT 38.7 % (36-48); HEMOGLOBIN 12.9 g/dL (12.0-16.0); LYMPHOCYTES # (AUTO) 1.7 K/uL (1.0-5.5); LYMPHOCYTES % (AUTO) 27.5 % (20.5-51.5); MEAN CORPUSCULAR HEMOGLOBIN 28 pg (27-31); MEAN CORPUSCULAR HGB CONC 33 % (32-36); MEAN CORPUSCULAR VOLUME 85 fL (79.0-98.0); MONOCYTES # (AUTO) 0.4 K/uL (0.0-1.0); MONOCYTES % (AUTO) 7.1 % (1.7-9.3); NEUTROPHILS # (AUTO) 3.9 K/uL (1.8-7.7); NEUTROPHILS % (AUTO) 62.2 % (40.0-70.0); PLATELET COUNT (AUTO) 299 K/uL (130-430); RED BLOOD CELL COUNT(AUTO) 4.55 MIL/uL (4.2-6.2); WHITE BLOOD COUNT (AUTO) 6.2 K/uL (4.8-10.8)
[2022-06-08] MEDS: POLYETHYLENE GLYCOL 3350, 17 GM/ POWD.PACK PO SCH (09:00)
[2022-06-08 09:13] LABS: ALBUMIN 2.8 g/dL (3.4-4.8); CALCIUM 8.7 mg/dL (8.4-11.0); CREATININE 0.57 mg/dL (0.55-1.30); TOTAL BILIRUBIN 0.5 mg/dL (0.0-1.0)
[2022-06-08] MEDS: DIVALPROEX SODIUM 500 MG TAB.SR.24H (DEPAKOTE ER) PO SCH (09:56)
[2022-06-08] MEDS: ARIPiprazole 5 MG TAB PO SCH ×2 (09:56→21:06)
[2022-06-08] MEDS: SERTRALINE HCL 50 MG TABLET PO SCH (09:56)
[2022-06-08] MEDS: OLANZapine 5 MG TABLET PO SCH ×2 (09:56→21:03)
[2022-06-08] MEDS: busPIRone HCL 5 MG TABLET PO SCH ×3 (09:56→21:07)
[2022-06-08] MEDS: ACETAMINOPHEN 325 MG TABLET PO PRN (09:58)
--- NOTE | 2022-06-08 10:00 | NUR ---
STOCK PREPARATION SUPERVISOR ACSW Malena responded to patient's request for social service support and to address order for discharge to inpatient psych treatment. Current Concern- Patient expresses not wanting to return to [facility] and is becoming anxious and verbalizing threats of harm if she returns. ACSW conducted contact in patients room while she sat in chair, patient continues to be 1:1 with jesica Maria E present. In an effort to assess patients understanding of her plan of care, ACSW asked patient to reiterate her plan. Patient was able to share that her doctor informed her plan was to return to [facility] as the psych doctor is recommending inpatient treatment for stabilization. Presenting problem- Self-Harm- Patient stated she did not want to return to [facility], and stated if I go there, Im worried I will hurt myself and find something to swallow. Suicidality- Patient disclosed prior incidents of sitting in traffic to kill herself so she can go back to her moms house. She also shares the voice she hears tells her to this. She denies any current SI. ACSW utilized elements of Cognitive Behavioral Therapy modalities to recognize connection of stress/situation to behavior and explored safe coping skills/tools to utilize during these times. Patient denies any auditory or visual hallucinations at this time and has been encouraged to notify staff immediately if she feels like harming or killing herself or feelings of wanting to ingest items. ACSW addressed the needs for stabilization including continuing psych meds. During this contact, patient expressed beginning to feel anxious because she is wanting to return to her [facility]. ACSW informed her efforts were being done to locate placement to include psych facilities in addition to [facility]. ACSW also informed her due to being under [facility] would also be notified of plan of care. ACSW consulted with Nurse Valdez to provide her an update on Social Work efforts at this time. ACSW will continue to be available as needed. Addendum: 06/08/22 at 1530 by Malena ARCHIBALD MARCIAL Guy met with patient to address reports of patient self-harming. Patient disclosed she is currently experiencing auditory hallucinations that are telling her to "leave AMA". She expressed feeling more anxious and bit her hand. Patient again expressed not wanting to return to [facility] but undertanding she needs psych treatment at this time. ACSW informed her efforts were ongoing to secure inpatient psych placement as well as contact with [facility] due to her conservatorship. ACSW discussed concerns related to patient's safety and being a danger to herself at this time. ACSJoe consulted with Nurse Courtney to address patient's increasing anxiety. MARCIAL also provided her an update on continuing efforts to locate inpatient treatment MARCIAL Guy will continue to be available as needed
--- NOTE | 2022-06-08 10:22 | NUR ---
ROUNDS Spoke with patient regarding her discharge planning and patient became upset and stated she did not want to go back to [facility]. Patient stated, "If I go back to [facility], I will try to hurt myself." MD and social welfare clerk are aware of the patient's statements. 1:1 sitter present for patient safety. All needs met at this time and safety checks made.
[2022-06-08 12:14] VITALS: BP_SYST 104
--- NOTE | 2022-06-08 13:00 | NUR ---
SELF HARM Patient stated she was "hearing very loud voices telling her to go AMA" and proceeded to bite her own hand, leaving teeth indentations. Calmed the patient down and provided comfort measures. Sitter at bedside for direct observation.
--- NOTE | 2022-06-08 14:15 | NUR ---
THERAPY AIDE/PSYCH PLACEMENT [facility] Malena faxed packet to review for psych placement to the following psych facilities; - [facility] fax: - [facility] fax: - [facility] fax: - [facility] fax: Addendum: 06/08/22 at 1520 by Malena ARCHIBALD [facility] Malena received the following update - [facility]- Declined placement due to being Medically Inappropriate - [facility]- Concerned about conservatorship, making attempts to contact [facility] Addendum: 06/09/22 at 1253 by Malena ARCHIBALD ACSW contacted [facility] to obtain further clarification on patient being declined, according to Marlen, patient has been declined due to developmental delay
--- NOTE | 2022-06-08 14:19 | NUR ---
NETWORK TECHNICAL ANALYST ACSW Malena attempted contact with [facility] Forepart Rounder Ritesh Jones . Voicemail requesting call back regarding update to discharge plan was left.
[2022-06-08 16:15] VITALS: BP_SYST 126
[2022-06-08] MEDS: LORazepam 1 MG TABLET PO PRN (16:40)
--- NOTE | 2022-06-08 17:42 | NUR ---
PULLED OUT IV Patient pulled out her own IV while laying under the covers, eyes closed appearing to be asleep. Patient disclosed to the nurse that she had removed the IV because the voices told her to. When asked what else the voices were saying, she stated that they wanted to eat something to harm herself and thats why she took out the IV, so she could eat it. The IV was removed from the room. Comfort measures provided to the patient and safety checks made. 1:1 sitter at bedside.
--- NOTE | 2022-06-08 18:10 | NUR ---
Received pt sitting on her bed. I offered ice water, pt asked for saltine crackers. Pt called her nursing home and her mom. Pt lay down and now resting. We'll continue to monitor.
--- NOTE | 2022-06-08 19:52 | NUR ---
CLOSING NOTE Patient resting in bed with eyes closed. No sign of distress or pain. Patient has stated numerous times throughout the shift that "the voices are getting louder" and encouraging her to perform self harm tasks such as walk into traffic or find something to swallow. No IV access at this time. All needs met and safety checks made. 1:1 sitter at bedside for safety. Endorsed to mini shifter nurse.
[2022-06-08 20:00] VITALS: BP_SYST 124
[2022-06-09] VITALS: BP_SYST 95
[2022-06-09] MEDS: D5/0.45 NS 1,000 ML IV SCH ×3 (00:15→20:15)
[2022-06-09 07:30] VITALS: BP_SYST 115
[2022-06-09] MEDS: OLANZapine 5 MG TABLET PO SCH ×2 (08:26→21:18)
[2022-06-09] MEDS: busPIRone HCL 5 MG TABLET PO SCH ×3 (08:27→21:18)
[2022-06-09] MEDS: ARIPiprazole 5 MG TAB PO SCH ×2 (08:28→21:18)
[2022-06-09] MEDS: ACETAMINOPHEN 325 MG TABLET PO PRN ×2 (08:29→21:19)
[2022-06-09] MEDS: POLYETHYLENE GLYCOL 3350, 17 GM/ POWD.PACK PO SCH (08:29)
[2022-06-09] MEDS: SERTRALINE HCL 50 MG TABLET PO SCH (08:29)
[2022-06-09] MEDS: DIVALPROEX SODIUM 500 MG TAB.SR.24H (DEPAKOTE ER) PO SCH (08:30)
--- NOTE | 2022-06-09 09:00 | NUR ---
MARRIAGE AND FAMILY THERAPIST [facility] Malena faxed updated packet to the following: - [facility] fax: - [facility] fax - [facility] fax: Addendum: 06/09/22 at 1252 by Malena ARCHIBALD MARCIAL Guy contacted [facility], according to Terri at [facility] packet is still under review. Addendum: 06/09/22 at 1307 by Malena Clancy SENIOR QUALITY TECHNICIAN MARCIAL Guy faxed packet to [facility] for review fax: Addendum: 06/09/22 at 1513 by Malena Clancy MSW MARCIAL Guy received call from Sahil @[facility] requesting information about patient's conservatorship. AMRCIAL relayed information provided by Dayanna from [facility] and provided her contact information. According to Sahil, they are still reviewing her chart and are completing discharges at their facility.
--- NOTE | 2022-06-09 10:14 | NUR ---
AMUSEMENT OR RECREATION CARD CHECKER [facility] Malena attempted contact with [facility] Information Technology Account Manager Ritesh Wade . Voicemail was left expressing need for support in securing inpatient psych treatment and information to clarify role of conservator in consenting to inpatient psych treatment. Addendum: 06/09/22 at 1137 by Malena Clancy CORPORATE TREASURY ANALYST ACSJoe Malena received a call from Kristen ([facility] Manager of Client and Residential Services) . She is covering for Ritesh for the rest of the week. [facility] provided her an update on patient continuing to be a danger to herself as well as barriers to locating placement. She also shared they have LPS Conservatorship over patient, but she is able to consent to inpatient psych treatment. Dayanna also shared patient has contacted her several times and appears to be more anxious and stressed during calls. According to Dayanna, patient's residence ([facility]) is the highest level of care offered and she will be able to return when she is stabilized. [facility] requested followup from Dayanna if she should obtain any helpful information for inpatient treatment.
[2022-06-09 11:30] VITALS: BP_SYST 124
[2022-06-09] MEDS: LORazepam 1 MG TABLET PO PRN ×3 (12:00→21:19)
--- NOTE | 2022-06-09 15:13 | NUR ---
AUTO DESIGN DETAILER ACSW Malena responded to a request for social work support from patient. Patient requesting update on inpatient psych treatment placement. ACSW informed her efforts are continuing to secure placement. Current concern- Patient disclosed an increase in auditory hallucinations, and now discloses visual hallucinations. Patient shares she is hearing voices telling to "leave AMA and to swallow stuff". She also states she is "seeing stuff at night, but I know there's not ghost in this hospital". ACSW explored coping skills with patient and encouraged her to continue utilizing deep breathing exercises and acknowledge her continuing to notify staff when she feels anxiety and hallucinations increasing. ACSW discussed concerns with patient's safety due to her increasing anxiety and negative symptoms, and again encouraged inpatient treatment to address her mental health needs. ACSW also informed patient psych doctor would be conducting an in-person visit later this day. ACSW will continue to be available as needed
[2022-06-09 15:30] VITALS: BP_SYST 122
--- NOTE | 2022-06-09 19:20 | NUR ---
OPENING NOTE PT IS LYING ON SIDE AUDIBLY SNORING. NO APPARENT SIGNS OF DISTRESS AT THIS TIME. BED IS IN LOWEST POSITION WITH SAFETY PRECAUTIONS IN PLACE. 1:1 OBSERVATION WITH SITTER PRESENT.
[2022-06-09 20:00] VITALS: BP_SYST 140
--- NOTE | 2022-06-09 20:16 | NUR ---
swati kim, called and spoke to intake and they said that can not take the pt and they informed dr victoria about this .
--- NOTE | 2022-06-10 03:29 | NUR ---
ROUNDS PT WAS SLEEPING ON STOMACH, AUDIBLY SNORING THEN SUDDENLY AWOKE SLAPPING HER HEAD SAYING "SHUT UP", NURSE TRIED TO STOP HER AND DISTRACT UNSUCCESSFULLY. PT STOPPED AFTER 15 SECONDS. NO APPARENT SIGNS OF DISTRESS AT THIS TIME. PT IS SITTING UP IN BED DRINKING WATER AND EATING A SNACK. 1:1 SITTER PRESENT
[2022-06-10] MEDS: LORazepam 1 MG TABLET PO PRN ×3 (03:30→20:07)
[2022-06-10] MEDS: ACETAMINOPHEN 325 MG TABLET PO PRN ×3 (03:30→15:20)
[2022-06-10] MEDS: D5/0.45 NS 1,000 ML IV SCH ×3 (05:24→20:10)
--- NOTE | 2022-06-10 06:59 | NUR ---
CLOSING NOTE PT IS SITTING UP IN BED TALKING WITH NURSE. PT IS CALM. NO APPARENT SIGNS OF DISTRESS NOTED AT THIS TIME. BED IS LOWEST POSITION WITH SAFETY PRECAUTIONS IN PLACE. 1:1 DIRECT OBSERVATION, SITTER PRESENT
[2022-06-10 08:00] VITALS: BP_SYST 114
--- NOTE | 2022-06-10 08:00 | NUR ---
INITIAL NOTES PATIENT IS AWAKE. AOX4. NO S/S OF DISTRESS AT THIS TIME. DENIES ANY SOB OR PAIN. BREATHING IS EVEN AND NONLABORED. PATIENT IS AMBULATORY. PATIENT WENT TO RESTROOM AND CLEANED HERSELF. GOWN AND LINEN WERE CHANGED. PATIENT DENIES WANTING TO HARM SELF AT THIS TIME BUT ADMITS TO HEARING VOICES. ORIENTED PATIENT TO REALITY AND EDUCATED ON SAFETY. PATIENT VERBALIZED UNDERSTANDING. BREAKFAST ON BEDSIDE TABLE, PATIENT EATING. SAFETY PRECAUTIONS IN PLACE, BED AT LOWEST POSITION. SITTER 1:1 PRESENT.
--- NOTE | 2022-06-10 08:43 | NUR ---
BEAUTICIAN APPRENTICE/PSYCH PLACEMENT [facility] Malena faxed packet for review, including new 5153 document, to the following inpatient psych facilities; - [facility] fax: - [facility] fax: - [facility] ext: [facility] - [facility] fax: Addendum: 06/10/22 at 1000 by Malena ARCHIBALD [facility] Malena faxed packet to [facility] Addendum: 06/10/22 at 1203 by Malena ARCHIBALD MARCIAL Guy obtained the following updates regarding psych placement: - [facility]- no beds available - [facility]- no beds available - [facility]- Declined due to inappropriateness related to developmental delay - [facility]- continuing to work on supporting placement - [facility]- still reviewing and working on existing patient discharges. Additional faxes were sent to the following; - [facility] fax
[2022-06-10] MEDS: POLYETHYLENE GLYCOL 3350, 17 GM/ POWD.PACK PO SCH ×2 (09:00→09:47)
[2022-06-10] MEDS: busPIRone HCL 5 MG TABLET PO SCH ×3 (09:46→20:07)
[2022-06-10] MEDS: DIVALPROEX SODIUM 500 MG TAB.SR.24H (DEPAKOTE ER) PO SCH (09:46)
[2022-06-10] MEDS: ARIPiprazole 5 MG TAB PO SCH ×2 (09:46→20:07)
[2022-06-10] MEDS: SERTRALINE HCL 50 MG TABLET PO SCH (09:47)
[2022-06-10] MEDS: OLANZapine 5 MG TABLET PO SCH ×2 (09:47→20:07)
[2022-06-10 12:00] VITALS: BP_SYST 122
[2022-06-10] MEDS: INSULIN LISPRO SLIDING SCALE 100 UNITS/ML VIAL (humaLOG) SUBCUT PRN ×2 (12:04→17:25)
--- NOTE | 2022-06-10 12:07 | NUR ---
NOTES PATIENT IS AWAKE. NO S/S OF DISTRESS NOTED. PATIENT DENIES ANY PAIN AT THIS TIME. NO SOB. PATIENT STATES DOES NOT HEAR OR SEE ANY HALLUCINATIONS AT THIS TIME. PATIENT IS CALM. VITAL SIGNS OBTAINED DOCUMENTED. PATIENT IN BED EATING CRACKERS AND WAITING FOR LUNCH. SAFETY PRECAUTIONS IN PLACE. BED AT LOWEST POSITION. SITTER 1:1.
--- NOTE | 2022-06-10 14:20 | NUR ---
NOTES PATIENT SITTING IN CHAIR, WANTED TO SPEAK TO HER MOTHER. CALLED HER MOTHER, PATIENT SPOKE TO MOM, WAS CRYING WHEN SPEAKING TO HER. PATIENT STOPPED CRYING AFTER PHONE CALL. PATIENT STATES FEELS BETTER AFTER TALKING TO MOM, WANTS TO SEE HER. PATIENT REQUESTING TO SEE MARKET CONSULTANT. PAGED MARKET CONSULTANT.
--- NOTE | 2022-06-10 14:29 | NUR ---
LETTUCE CUTTER ACSW Malena received a call from Tila Campbell @[facility] call [place] . She shared she has received denials from [facility], [facility] all due to patient's developmental delay. She also shared she is continuing supportive efforts to locate inpatient psych placement for patient.
--- NOTE | 2022-06-10 15:12 | NUR ---
NOTES PATIENT WENT TO RESTROOM AND SAT IN CHAIR. PATIENT STATES THAT THE VOICES ARE GETTING LOUDER IN HER HEAD. STATES THE VOICES ARE TELLING HER HURT HERSELF BY BITING HER HAND. REORIENTED PATIENT TO HER SURROUNDINGS, REINFORCED TO THE PATIENT THAT THE VOICES ARE NOT REAL, AND THAT SHE IS IN A SAFE ENVIRONMENT.
[2022-06-10 16:00] VITALS: BP_SYST 122
--- NOTE | 2022-06-10 16:04 | NUR ---
NOTES PATIENT SITTING IN CHAIR, BY BEDSIDE. STATES FEELING CALM AND THAT THE VOICES ARE QUIETER AT THIS TIME. PATIENT STATES FEELS SAFE AND DOES NOT WANT TO HURT HERSELF. NO S/S OF DISTRESS NOTED AT THIS TIME. DENIES PAIN, HEADACHE ALLEVIATED. VITAL SIGNS OBTAINED, DOCUMENTED. SAFETY PRECAUTIONS IN PLACE.
[2022-06-10] MEDS ORDERED: HYDROcodone/ACETAMIN 5-325 MG TAB (NORCO/ VICODIN) PO ONE (17:45)
[2022-06-10] MEDS ORDERED: NALOXONE HCL 0.4 MG/ML AMP (NARCAN) IVP PRN ×2 (17:45)
--- NOTE | 2022-06-10 19:00 | NUR ---
CLOSING NOTE PATIENT IS IN THE ROOM, SITTING IN CHAIR BY BEDSIDE. NO DISTRESS NOTED. DENIES PAIN AND SOB. PATIENT IS CALM, STATES NO AUDITORY HALLUCINATIONS AT THIS TIME. PATIENT STATES FEELS SAFE. SAFETY PRECAUTIONS IN PLACE. 1:1 SITTER PRESENT.
--- NOTE | 2022-06-10 19:14 | NUR ---
OPENING NOTE PT IS SITTING IN A CHAIR BEDSIDE. NO APPARENT SIGNS OF DISTRESS NOTED AT THIS TIME. PT IS IN A CALM MOOD AND TALKING WITH THE NURSE. BED IS IN LOWEST POSITION WITH SAFETY PRECAUTION IN PLACE. 1:1 OBSERVATION, SITTER PRESENT
[2022-06-10 20:35] VITALS: BP_SYST 121
[2022-06-11 00:45] VITALS: BP_SYST 120
--- NOTE | 2022-06-11 03:05 | NUR ---
ROUNDS PT WOKE UP TO USE BATHROOM. PT CAME BACK AND SAT IN A CHAIR FOR APROX 30 MIN. NO APPARENT SIGNS OF DISTRESS NOTED AT THIS TIME. PT IS COMPLAINING OF 7/10 PAIN IN HER PELVIS. PRN MEDICATION GIVEN. 1:1 OBSERVATION. SITTER PRESENT
[2022-06-11] MEDS: LORazepam 1 MG TABLET PO PRN ×2 (03:46→13:06)
[2022-06-11] MEDS: HYDROcodone/ACETAMIN 5-325 MG TAB (NORCO/ VICODIN) PO PRN ×3 (03:47→19:20)
[2022-06-11 08:00] VITALS: BP_SYST 128
--- NOTE | 2022-06-11 08:16 | NUR ---
Nutritional Screening High risk follow up Admitting Diagnosis Foreign Body Ingestion Reviewed Pertinent Medical/Surgical Hx Medical Record Medical History Comment: Per h&p 06/04: 36yF from [facility] with a pmh of bipolar disorder and schizophrenia who was admitted to the ED for swallowing a battery. KUB showed the AA battery in the ascending colon. Pt is currently NPO awaiting for battery to pass throug school. If battery does not pass, GI/MD will consider procedure to remove battery. Subjective Information Bedside visit deferred due to high workload. Per MD notes, the patient passed the foreign body (battery) she swallowed and plan is to discharge back to [facility]. Noted w/ regular diet, usually 100% PO intake. Current Diet Order/Nutrition Support Regular diet x4 days Education Provided Not Indicated Pertinent Medications D5NS @ 100 ml/h = 408 kcals, Lispro ISS Pertinent Labs serum glucose- high (mg/dL) 06/07: 110; 122; 114 Height (Feet) 5 feet Height (Inches) 7.00 inches Weight (Pounds) 290 pounds Weight (Calculated Kilograms) 131.740340 kilograms Patient Weight 131.542 kg Body Mass Index 45.42 kg/m2 %IBW 215 [place]/Adjusted Body Weight 135lbs/ 61.3kg Recent Weight Change NEW weight 06/07: 131.5kg - weight loss likely multifactorial, considered beneficial 2/2 BMI > 40 kg/m2 Weight Status Morbidly Obese Gastrointestinal Symptoms None Last BM Jun 11, 2022 Food Allergies No Usual Diet At Home Regular Skin Integrity Comment: posterior buttocks erythma; anterior abdominal scar; Yury 20 Current % PO 80-100%, usually 100% Estimated Energy Expenditure (kcals/day) 2864-1322 (25-30 kcal/kg/day x IBW for morbid obesity) Estimated Protein Required (g/day) 61-74 (1-1.2 g/kg/day for morbid obesity and maintenance) Estimated Fluid Required (l/day) 1.5-1.8 (1 ml/kcal) Problem/Etiology/Signs/Symptoms Foreign body ingestion related to schizophrenia as evidenced by KUB showing AA battery in ascending colon, patient stating she swallowed a battery Expected Outcomes/Goals AA battery removed from GI tract while admitted Diet initiated within 3 days BM q 1-3 days Dietitian Recommendations Continue regular diet Encourage PO intake Follow Up Moderate risk: 3-5 days Follow Up By Jun 16, 2022 Alert Indicated Risk of Malnutrition Related to Morbid Obesity BMI> or equal to 40 Risk of Malnutrition Related to Morbid Obesity Yes Malnutrition Recommendations by RD Decrease Calorie Intake Malnutrition Comment [facility]
[2022-06-11] MEDS: POLYETHYLENE GLYCOL 3350, 17 GM/ POWD.PACK PO SCH (09:00)
[2022-06-11] MEDS: OLANZapine 5 MG TABLET PO SCH ×2 (09:33→20:32)
[2022-06-11] MEDS: SERTRALINE HCL 50 MG TABLET PO SCH (09:33)
[2022-06-11] MEDS: busPIRone HCL 5 MG TABLET PO SCH ×3 (09:34→20:32)
[2022-06-11] MEDS: ARIPiprazole 5 MG TAB PO SCH ×2 (09:34→20:32)
[2022-06-11] MEDS: DIVALPROEX SODIUM 500 MG TAB.SR.24H (DEPAKOTE ER) PO SCH (09:35)
[2022-06-11] MEDS: D5/0.45 NS 1,000 ML IV SCH ×2 (09:35→14:02)
[2022-06-11 12:00] VITALS: BP_SYST 129
--- NOTE | 2022-06-11 14:55 | NUR ---
Notified Dr. Perez of patient having hard stick IV. New orders noted and carried out.
[2022-06-11 16:00] VITALS: BP_SYST 117
[2022-06-11] MEDS: ONDANSETRON HCL 4 MG/2 ML VIAL IVP PRN (16:40)
--- NOTE | 2022-06-11 16:44 | NUR ---
Telepsych consult with patient.
[2022-06-11] MEDS: INSULIN LISPRO SLIDING SCALE 100 UNITS/ML VIAL (humaLOG) SUBCUT PRN ×2 (17:01→17:40)
--- NOTE | 2022-06-11 19:21 | NUR ---
Patient had episode of restlessness and walked outside of room yelling and screaming. Sitter outside to assist. Patient escorted back to room. Let CN know. Dr. Wayne made aware.
--- NOTE | 2022-06-11 19:30 | NUR ---
OPENING NOTE/PATIENT AGITATED REPORT RECEIVED FROM DAYSHIFT NURSE. PATIENT RECEIVED AGITATED, CURRENTLY ROAMING IN THE HALLWAY, NOT LISTENING TO DIRECTIONS, MISDIRECTION INEFFECTIVE. SITTER AND SECURITY WITH PATIENT. WILL INFORM MD.
--- NOTE | 2022-06-11 19:49 | NUR ---
HIGH ALERT NOTE: Called Dr. Perez back and identified within the medical roster to verify physician authenticity.
[2022-06-11] MEDS ORDERED: LORazepam 2 MG/ML VIAL ONE (19:59)
[2022-06-11 20:00] VITALS: BP_SYST 125
[2022-06-11] MEDS ORDERED: LORazepam 2 MG/ML VIAL IVP ONE (20:00)
[2022-06-11 22:47] VITALS: BP_SYST 132
[2022-06-12 00:03] VITALS: BP_SYST 115
[2022-06-12] MEDS: ONDANSETRON HCL 4 MG/2 ML VIAL IVP PRN ×3 (01:15→15:22)
[2022-06-12] MEDS: HYDROcodone/ACETAMIN 5-325 MG TAB (NORCO/ VICODIN) PO PRN ×4 (01:20→20:24)
[2022-06-12] MEDS: LORazepam 1 MG TABLET PO PRN ×3 (06:08→22:20)
--- NOTE | 2022-06-12 06:15 | NUR ---
CLOSING NOTE PATIENT IN BED, RESTING, NO S/S OF ACUTE DISTRESS NOTED. BREATHING EVEN AND UNLABORED. SITTER PRESENT AT BEDSIDE. ALL NEEDS MET THROUGHOUT SHIFT. FALL, SAFETY PRECAUTIONS MAINTAINED THROUGHOUT SHIFT. WILL CONTINUE TO MONITOR UNTIL PATIENT CARE IS ENDORSED TO ONCOMING DAYSHIFT NURSE.
[2022-06-12 08:00] VITALS: BP_SYST 124
[2022-06-12] MEDS: DIVALPROEX SODIUM 500 MG TAB.SR.24H (DEPAKOTE ER) PO SCH (08:37)
[2022-06-12] MEDS: SERTRALINE HCL 50 MG TABLET PO SCH (08:38)
[2022-06-12] MEDS: busPIRone HCL 5 MG TABLET PO SCH ×3 (08:38→21:06)
[2022-06-12] MEDS: OLANZapine 5 MG TABLET PO SCH ×2 (08:38→21:06)
[2022-06-12] MEDS: ARIPiprazole 5 MG TAB PO SCH ×2 (08:38→21:06)
[2022-06-12] MEDS: POLYETHYLENE GLYCOL 3350, 17 GM/ POWD.PACK PO SCH (08:42)
[2022-06-12 09:09] LABS: BASOPHILS # (AUTO) 0.1 K/uL (0.0-0.2); BASOPHILS % (AUTO) 0.9 % (0.0-2.0); EOSINOPHILS # (AUTO) 0.2 K/uL (0.0-0.4); EOSINOPHILS % (AUTO) 2.7 % (0.0-4.0); HEMATOCRIT 38.2 % (36-48); HEMOGLOBIN 12.8 g/dL (12.0-16.0); LYMPHOCYTES # (AUTO) 1.9 K/uL (1.0-5.5); LYMPHOCYTES % (AUTO) 32.1 % (20.5-51.5); MEAN CORPUSCULAR HEMOGLOBIN 28 pg (27-31); MEAN CORPUSCULAR HGB CONC 33 % (32-36); MEAN CORPUSCULAR VOLUME 85 fL (79.0-98.0); MONOCYTES # (AUTO) 0.4 K/uL (0.0-1.0); MONOCYTES % (AUTO) 6.8 % (1.7-9.3); NEUTROPHILS # (AUTO) 3.4 K/uL (1.8-7.7); NEUTROPHILS % (AUTO) 57.5 % (40.0-70.0); PLATELET COUNT (AUTO) 246 K/uL (130-430); RED BLOOD CELL COUNT(AUTO) 4.51 MIL/uL (4.2-6.2); RED CELL DISTRIBUTION WIDTH 14.8 % (9.0-15.0)
[2022-06-12 09:46] LABS: CALCIUM 8.6 mg/dL (8.4-11.0); CREATININE 0.62 mg/dL (0.55-1.30); POTASSIUM 4.1 mmol/L (3.5-5.1)
[2022-06-12] MEDS: INSULIN LISPRO SLIDING SCALE 100 UNITS/ML VIAL (humaLOG) SUBCUT PRN (12:44)
[2022-06-12 16:00] VITALS: BP_SYST 159
--- NOTE | 2022-06-12 17:34 | NUR ---
PATIENT HAS BEEN RESTING QUIETLY MOST OF THE DAY. SHE ACCEPTS VERBAL REDIRECTION WELL. PT C/O INCREASED ANXIETY EARLIER. PT TEACHING DONE ON RELAXATION TECHNIQUES AND PT WAS MEDICATED WITH PRN MEDS PER NEEDED. PT ALSO EXPRESSED CONCERNS TO DR. XAVIER OF VAGINAL BLEEDING THAT OCCURS INTERMITTENTLY THROUGHOUT THE MONTH. SHE MENTIONED THAT HER PRIMARY PHYSICIAN HAS SUGGESTED HAVING FURTHER TESTING AND OBSERVATIONS DONE. VSS. PT DENIES ANY THOUGHTS OR PLANS OF SELF HARM. 1:1 SITTER REMAINS IN PROGRESS. PT EXHIBITS NO S/S ACUTE DISTRESS/
[2022-06-12 20:00] VITALS: BP_SYST 124
--- NOTE | 2022-06-12 23:00 | NUR ---
HIGH ALERT NOTE: Called Kinjal Sullivan back at identified within the medical roster to verify physician authenticity. Addendum: 06/12/22 at 8370 by [facility] Three substation operator chief CALLED [phone] AND SPOKE TO Kinjal SULLIVAN AND TOLD HIM THAT THE PATIENT IS AGITATED AND RESTLESS AND TRIED TO LEAVE THE HOSPITAL. MD ORDERED TO GIVE PATIENT ATIVAN 2 MG IVP X1 ONLY FOR AGITATION.
[2022-06-12] MEDS ORDERED: LORazepam 2 MG/ML VIAL ONE (23:09)
[2022-06-12] MEDS ORDERED: LORazepam 2 MG/ML VIAL IVP ONE (23:15)
--- NOTE | 2022-06-12 23:50 | NUR ---
PATIENT WAS AGITATED EARLIER AND LEFT HIS ROOM AND WENT OUT TO THE LOBBY. SWITCHBOARD INSPECTOR SPOKE TO PATIENT TO COME BACK TO THE ROOM. CALLED Kinjal SULLIVAN AND INFORMED HIM ABOUT THE PATIENT'S SYMPTOMS. PATIENT WAS VERY ANXIOUS AND PULLING OUT WIRINGS IN THE ROOM, BANGED HER HEAD ON THE WALL, AND WAS VERY RESTLESS AND AGITATED. MD CALLED BACK AND ORDERED TO GIVE PATIENT ATIVAN 2 MG IVP X1 FOR AGITATION AND ANXIETY. PATIENT WENT TO SLEEP 30 MINUTES AFTER THE ATIVAN WAS GIVEN. SITTER AT THE BEDSIDE. MONITORED CLOSELY.
[2022-06-13] VITALS (7 sets, daily range): BP systolic 106–143
[2022-06-13] MEDS: HYDROcodone/ACETAMIN 5-325 MG TAB (NORCO/ VICODIN) PO PRN ×3 (04:26→20:48)
[2022-06-13] MEDS: INSULIN LISPRO SLIDING SCALE 100 UNITS/ML VIAL (humaLOG) SUBCUT PRN ×3 (05:39→18:06)
[2022-06-13] MEDS: ONDANSETRON HCL 4 MG/2 ML VIAL IVP PRN ×2 (06:29→12:59)
--- NOTE | 2022-06-13 06:41 | NUR ---
AFTER PATIENT WAS BROUGHT BACK TO THE ROOM LAST NIGHT FROM LEAVING THE BUILDING, PATIENT WAS GIVEN ATIVAN [address] XAVIER. PATIENT THEN SLEPT AFTER THAT. NO DISTRESS NOTED. VS STABLE. KEPT WARM AND COMFORTABLE. ALL NEEDS ATTENDED. CALL LIGHT PLACED WITHIN REACH. SITTER WAS AT THE BEDSIDE WATCHING THE PATIENT. MONITORED CLOSELY.
[2022-06-13 06:47] LABS: BASOPHILS # (AUTO) 0.1 K/uL (0.0-0.2); EOSINOPHILS # (AUTO) 0.2 K/uL (0.0-0.4); EOSINOPHILS % (AUTO) 2.7 % (0.0-4.0); HEMATOCRIT 37.9 % (36-48); HEMOGLOBIN 12.8 g/dL (12.0-16.0); LYMPHOCYTES # (AUTO) 1.8 K/uL (1.0-5.5); LYMPHOCYTES % (AUTO) 30.9 % (20.5-51.5); MEAN CORPUSCULAR HEMOGLOBIN 29 pg (27-31); MEAN CORPUSCULAR HGB CONC 34 % (32-36); MEAN CORPUSCULAR VOLUME 84 fL (79.0-98.0); MONOCYTES # (AUTO) 0.3 K/uL (0.0-1.0); MONOCYTES % (AUTO) 5.7 % (1.7-9.3); NEUTROPHILS # (AUTO) 3.5 K/uL (1.8-7.7); NEUTROPHILS % (AUTO) 59.7 % (40.0-70.0); PLATELET COUNT (AUTO) 283 K/uL (130-430); RED BLOOD CELL COUNT(AUTO) 4.49 MIL/uL (4.2-6.2); RED CELL DISTRIBUTION WIDTH 14.6 % (9.0-15.0); WHITE BLOOD COUNT (AUTO) 5.9 K/uL (4.8-10.8)
[2022-06-13 07:15] LABS: ALBUMIN 2.7 g/dL (3.4-4.8); CALCIUM 8.6 mg/dL (8.4-11.0); CREATININE 0.59 mg/dL (0.55-1.30); TOTAL BILIRUBIN 0.2 mg/dL (0.0-1.0)
--- NOTE | 2022-06-13 08:00 | NUR ---
Opening Note Received report from Dannie NICHOLS. Patient is laying in bed awake. A/O x4. No apparent distress noted. Vitals as charted. Call light within reach. Safety and fall precautions in place. All needs met. Jorden at bedside with patient, 1:1 sitter.
--- NOTE | 2022-06-13 09:00 | NUR ---
REWORK MACHINE OPERATOR ACSW Malena met with patient at bedside. Patient was awake, alert and orientedx4. ACSW discussed placement with patient. ACSW also reviewed telepsych consult with patient including their recommendation that she is safe to return to residential facility. Patient stated she does not want to return and would like to go home with her mother. ACSW made attempts to address patient's anxiety and utilized "miracle question" and elements of Solution Focused Therapy techniques to explore placement and encourage safe discharge to residential facility. Patient shared she has spoken to her [facility] Tank Refinisher Ritesh Wade to request new placement. SAFETY PLAN- ACSW Malena attempted to discuss and create safety plan to address self harm and plan for placement but patient did not wand to discuss at this time and wanted ACSW to speak with [facility] representatives to inquire into placement options and supports.
--- NOTE | 2022-06-13 09:20 | NUR ---
Note Patient requesting ice water. Provided this for patient. No apparent distress noted. Call light within reach. Safety and fall precautions in place. All needs met. Jorden at bedside, 1:1 sitter.
[2022-06-13] MEDS: POLYETHYLENE GLYCOL 3350, 17 GM/ POWD.PACK PO SCH (09:27)
[2022-06-13] MEDS: busPIRone HCL 5 MG TABLET PO SCH ×3 (09:28→20:47)
[2022-06-13] MEDS: SERTRALINE HCL 50 MG TABLET PO SCH (09:28)
[2022-06-13] MEDS: ARIPiprazole 5 MG TAB PO SCH ×2 (09:28→20:47)
[2022-06-13] MEDS: DIVALPROEX SODIUM 500 MG TAB.SR.24H (DEPAKOTE ER) PO SCH (09:28)
[2022-06-13] MEDS: OLANZapine 5 MG TABLET PO SCH ×2 (09:28→20:47)
--- NOTE | 2022-06-13 12:16 | NUR ---
IMAGE ASSEMBLER ACSW Malena spoke to [facility] Manager Kristen to discuss placement options for patient. According to Dayanna, [facility] is making attempts to encourage patient to return to previous placement as this is the highest level of care and they are able to provide ongoing therapeutic interventions for patient. ACSW provided Kristen with number for nurses station and assigned RN. ACSW will continue to be available as needed
[2022-06-13] MEDS: LORazepam 1 MG TABLET PO PRN (14:23)
--- NOTE | 2022-06-13 14:48 | NUR ---
Note Spoke with PAOLA Guy. Unable to find placement for patient today.
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
--- NOTE | 2022-06-13 19:29 | NUR ---
Closing Note Patient is sitting up in bed awake. No apparent distress noted. Call light within reach. Safety and fall precautions in place. All needs met. Endorsed care to police shift commander RN. Patient 1:1 sitter present.
--- NOTE | 2022-06-13 21:11 | NUR ---
PAGED PAGED DOCTOR SANTANA
--- NOTE | 2022-06-13 21:15 | NUR ---
PAGED PAGED DOCTOR MORENITA
--- NOTE | 2022-06-13 22:01 | NUR ---
PT LEFT ROOM AND WALKED OUTSIDE. PT REFUSED TO COMEBACK INTO ROOM. [facility] DEPART[facility] WAS CALLED. DIRECTOR COMPENSATION, SITTER, CHARGE NURSE AND HOUSE SUP STATED WITH PT WHILE SHE WAS OUTSIDE. DR XAVIER WAS NOTIFIED AND STATED PT WAS ABLE TO LEAVE AMA. PT SIGNED AMA FORUM. IV WAS REMOVED. ID WRIST BAND WAS REMOVED. PT WAS TAKEN TO [facility] WHICH IS WHAT PATIENT REQUESTED. CHIEF RADIATION THERAPIST TRACEY BOYLE WAS ALSO NOTIFIED THAT PT LEFT AMA AND WAS TAKEN [facility].
--- NOTE | 2022-06-14 14:12 | NUR ---
INSTRUCTOR KNITTING ACSW Malena received a call from Kristen with [facility] . As requested, ACSW provided her clarification on events that led to patient being picked up by and going to [facility] as reflected in nursing notes.
== END 2022-06-13 21:50 | disposition left against medical advice (07) | DRG 254 ==
LOC: SED 14:29 → SMU 17:30 → SIC 06-04 20:13 → SMU 06-05 19:27
PROVIDERS: ADMIT Preventive Medicine Preventive Medicine/Occupational Environmental Medicine; ATTEND Preventive Medicine Preventive Medicine/Occupational Environmental Medicine
DX: T18.2XXA Foreign body in stomach, initial encounter (principal); E43 Unspecified severe protein-calorie malnutrition; E87.1 Hypo-osmolality and hyponatremia; E88.09 Other disorders of plasma-protein metabolism, not elsewhere classified; F25.9 Schizoaffective disorder, unspecified; F31.9 Bipolar disorder, unspecified; F60.3 Borderline personality disorder; E11.65 Type 2 diabetes mellitus with hyperglycemia; E78.5 Hyperlipidemia, unspecified; I10 Essential (primary) hypertension; E66.9 Obesity, unspecified; Z20.822 Contact with and (suspected) exposure to COVID-19; E78.00 Pure hypercholesterolemia, unspecified; K21.9 Gastro-esophageal reflux disease without esophagitis; F63.9 Impulse disorder, unspecified; K43.9 Ventral hernia without obstruction or gangrene; X58.XXXA Exposure to other specified factors, initial encounter; Y93.89 Activity, other specified; Y92.89 Other specified places as the place of occurrence of the external cause; Z68.42 Body mass index [BMI] 45.0-49.9, adult; Z79.899 Other long term (current) drug therapy; Z88.0 Allergy status to penicillin; Z88.1 Allergy status to other antibiotic agents; Z88.2 Allergy status to sulfonamides; Y99.8 Other external cause status
CPT/HCPCS: 36415; 71045; 74018; 76376; 80048; 80053; 81000; 82962; 83735; 84484; 84703; 85025; 93005; 96374; 96375; 99285; G0480; G0481; J1885; J2060; J2250; J2270; J2405; J3010

== ENCOUNTER 2023-03-07 22:46 | Emergency (ER) | payer MEDICAID ==
[~2023-03-07] VITALS: Ht 167.6 cm; Wt 143.3 kg
[~2023-03-07 22:46] MED LIST changes: +ARIP10TA9 PO; +BUSP10TA3 PO; +DIVA250T PO; +DOCU-144 PO; +FAMO20TA8 PO; +LIP10 PO; +METF-518 PO; +METO25TA6 PO; +OLAN15TA3 PO; +SERT-131 PO
[2023-03-07 23:09] VITALS: BP_SYST 146
[2023-03-08 00:08] LABS: BASOPHILS % (AUTO) 0.7 % (0.0-2.0); EOSINOPHILS # (AUTO) 0.2 K/uL (0.0-0.4); EOSINOPHILS % (AUTO) 2.1 % (0.0-4.0); HEMATOCRIT 33.9 % (36-48); HEMOGLOBIN 10.9 g/dL (12.0-16.0); LYMPHOCYTES # (AUTO) 2.2 K/uL (1.0-5.5); LYMPHOCYTES % (AUTO) 29.4 % (20.5-51.5); MEAN CORPUSCULAR HEMOGLOBIN 26 pg (27-31); MEAN CORPUSCULAR HGB CONC 32 % (32-36); MEAN CORPUSCULAR VOLUME 79 fL (79.0-98.0); MONOCYTES # (AUTO) 0.5 K/uL (0.0-1.0); MONOCYTES % (AUTO) 7.1 % (1.7-9.3); NEUTROPHILS # (AUTO) 4.6 K/uL (1.8-7.7); NEUTROPHILS % (AUTO) 60.7 % (40.0-70.0); PLATELET COUNT (AUTO) 273 K/uL (130-430); RED BLOOD CELL COUNT(AUTO) 4.28 MIL/uL (4.2-6.2); RED CELL DISTRIBUTION WIDTH 16.6 % (9.0-15.0); WHITE BLOOD COUNT (AUTO) 7.5 K/uL (4.8-10.8)
[2023-03-08 00:37] LABS: ANION GAP 9 (5-15); CALCIUM 8.6 mg/dL (8.4-11.0); CHLORIDE 104 mmol/L (98-107); CREATININE 0.57 mg/dL (0.55-1.30); GFR AFRICAN AMERICAN 153 mL/min (>90); GLUCOSE 158 mg/dL (70-99); UREA NITROGEN, BLOOD 11 mg/dL (8-21)
[2023-03-08 00:42] LABS: ALANINE AMINOTRANSFERASE 25 U/L (12-78); ALBUMIN 2.8 g/dL (3.4-4.8); ALCOHOL, BLOOD 6 mg/dL (<10); ASPARTATE AMINOTRANSFERASE 8 U/L (10-37); TOTAL BILIRUBIN 0.3 mg/dL (0.0-1.0)
[2023-03-08 00:53] LABS: ACETAMINOPHEN < 1 ug/mL (1-30)
[2023-03-08 02:37] LABS: BARBITURATE, URINE NEGATIVE (NEG <=200); BENZODIAZEPINE, URINE NEGATIVE (NEG <=150); CANNABINOID, URINE NEGATIVE (NEG <=50); COCAINE, URINE NEGATIVE (NEG <=150); METHAMPHETAMINES SCREEN,URINE NEGATIVE (NEG <=500); OPIATE, URINE NEGATIVE (NEG <=100); PHENCYCLIDINE SCREEN,URINE NEGATIVE (NEG <=25); UR TRICYCLIC ANTIDEPRESSANTS NEGATIVE (NEG <=300); URINE AMPHETAMINE NEGATIVE (NEG <=500); URINE METHADONE NEGATIVE (NEG <=200); URINE OXYCODONE SCREEN NEGATIVE (NEG <=100); URINE PROPOXYPHENE SCREEN NEGATIVE (NEG <=300)
[2023-03-08 03:15] VITALS: BP_SYST 140
== END 2023-03-08 03:15 | disposition home or self-care (01) ==
LOC: SED 22:46
DX: T18.9XXA Foreign body of alimentary tract, part unspecified, initial encounter (principal); R07.9 Chest pain, unspecified; R10.31 Right lower quadrant pain; E11.9 Type 2 diabetes mellitus without complications; I10 Essential (primary) hypertension; Z88.0 Allergy status to penicillin; Z88.1 Allergy status to other antibiotic agents; Z86.59 Personal history of other mental and behavioral disorders; Z79.899 Other long term (current) drug therapy; W45.8XXA Other foreign body or object entering through skin, initial encounter; Y93.89 Activity, other specified; Y92.89 Other specified places as the place of occurrence of the external cause; Y99.8 Other external cause status
CPT/HCPCS: 99285; 80307; 80053; 85025; 85379; 84484; 36415; 74018; 81025; 71045; 93005; G0482; G0480; G0481